=== PATIENT | female | born 1945 | race Caucasian/White ===

== ENCOUNTER 2022-01-29 16:24 | Outpatient (CLI) | payer MEDICARE, BC, SELFPAY | END 2022-01-29 16:25 | disposition home or self-care (01) | PROVIDERS: PCP Family Medicine; Visit Provider Family Medicine | DX: R41.82 Altered mental status, unspecified (principal); R47.81 Slurred speech | CPT/HCPCS: A0425; A0427 ==

== ENCOUNTER 2022-01-29 17:08 | Emergency (ER) | payer MEDICARE, BC, SELFPAY ==
[2022-01-29] VITALS (9 sets, daily range): BP systolic 136–164; BP diastolic 67–103; PULSE 88–97; RESP 16–18; TEMP 36.3; O2SAT 96–98; BMI 31.2
--- NOTE | 2022-01-29 18:21 | CT_ITS ---
Patient: ADILIA COREA Facility:?[facility] R[facility] Patient ID:?[id number] Site Patient ID:?[id number]. Site :?[id number] Study:?CT-Head W/O STROKE ?-01/29/2022 7:08:32 PM Ordering Physician:Loc Mario Final Report: CT HEAD DATE: 01/29/2022 CLINICAL HISTORY: Patient with altered mental status. TECHNIQUE: Standard CT scanning of the head was performed. COMPARISON: None. FINDINGS: There is no intracranial hemorrhage. There is no territorial infarction. There are mild microangiopathic changes. There is diffuse parenchymal volume loss. There is no mass effect or midline shift. The calvarium is unremarkable. The orbits are unremarkable. The paranasal sinuses are unremarkable. The mastoid air cells are unremarkable. The soft tissues are unremarkable. IMPRESSION: 1. No intracranial hemorrhage or territorial infarction. 2. Mild microangiopathic changes and diffuse parenchymal volume loss. Please note that all CT scans at this facility use dose modulation, iterative reconstruction, and/or weight-based dosing when appropriate to reduce radiation dose to as low as reasonably achievable. Dictated by: Pawel Trivedi MD @ 01/29/2022 19:23:47 Signed by:?Pawel Trivedi MD @01/29/2022 7:23:47 PM (Electronic Signature)
--- NOTE | 2022-01-29 18:21 | CT_ITS ---
Patient: ADILIA COREA Facility:?[facility] R[facility] Patient ID:?[id number] Site Patient ID:?[id number]. Site :?[id number] Study:?CT-Neck Angio W/IV CONTRAST-01/29/2022 7:10:15 PM Ordering Physician:Loc Mario Final Report: DATE: 01/29/2022 CLINICAL HISTORY: Patient with focal neurological deficits. TECHNIQUE: Standard helical CT image acquisition of the neck up to the skull base after bolus intravenous contrast enhancement. Multiplanar reconstructed images performed on a separate workstation. COMPARISON: CT same day. FINDINGS: The origins of the great vessels from the aortic arch are patent. The origin of the right vertebral artery is patent. The origin of the left vertebral artery is patent. The common carotid arteries are patent. There is no stenosis at the origin of the right internal carotid artery. There is no stenosis at the origin of the left internal carotid artery. The rest of the cervical segments of the internal carotid arteries are patent up to the skull base. The right vertebral artery is dominant. The cervical segments of the vertebral arteries are patent up to the skull base. The visualized lung apices are unremarkable. The thyroid gland is unremarkable. The soft tissues of the neck are unremarkable. There are degenerative changes in the cervical spine. IMPRESSION: Normal CT angiogram of the neck. Please note that all CT scans at this facility use dose modulation, iterative reconstruction, and/or weight-based dosing when appropriate to reduce radiation dose to as low as reasonably achievable. Dictated by Pawel Trivedi MD @ 01/29/2022 10:55:32 PM Signed by:?Pawel Trivedi MD @01/29/2022 10:55:32 PM (Electronic Signature)
--- NOTE | 2022-01-29 18:21 | CT_ITS ---
Patient: ADILIA COREA Facility:?[facility] Patient ID:?[id number] Site Patient ID:?[id number]. Site :?[id number] Study:?CT-Head Angio W/IV-01/29/2022 7:09:12 PM Ordering Physician:Loc Mario Final Report: DATE: 01/29/2022 CLINICAL HISTORY: Patient with focal neurological deficits. TECHNIQUE: Standard helical CT image acquisition through the intracranial circulation following intravenous administration of contrast material with bolus tracking. Multiplanar reconstructed images were performed and interpreted. COMPARISON: CT same day FINDINGS: There is no cerebral aneurysm or large vessel occlusion. The right internal carotid artery is normal. The right middle cerebral artery and its branches are normal. The right anterior cerebral artery and its branches are normal. The left internal carotid artery is normal. The left middle cerebral artery and its branches are normal. The left anterior cerebral artery and its branches are normal. The anterior communicating artery is well visualized and appears normal. The right vertebral artery and PICA are normal. The left vertebral artery and PICA are normal. The right vertebral artery is dominant. The basilar artery is patent and appears normal. The right posterior cerebral artery is normal. The left posterior cerebral artery is normal. The visualized venous structures are patent. IMPRESSION: Normal CT angiogram of the head without intracranial aneurysm or other neurovascular abnormality. Please note that all CT scans at this facility use dose modulation, iterative reconstruction, and/or weight-based dosing when appropriate to reduce radiation dose to as low as reasonably achievable. Dictated by Pawel Trivedi MD @ 01/29/2022 10:56:45 PM Signed by:?Pawel Trivedi MD @01/29/2022 10:56:45 PM (Electronic Signature)
[2022-01-29 18:22] LABS: Basophils Absolute Auto 0.03 K/uL (0.00-0.30); Basophils Percent Auto 0.4 % (0.0-3.0); Eosinophils Absolute Auto 0.15 K/uL (0.00-0.50); Hemoglobin* 14.3 gm/dL (12.0-16.0); Immature Granulocytes Abs Auto 0.01 K/uL (0.00-0.30); Lymphocytes Percent Auto 19.9 % (20-44); Mean Corpuscular HGB Conc 33 gm/dL (32-36); Mean Corpuscular Hemoglobin 30 pg (26-34); Mean Corpuscular Volume 92 fL (80-100); Monocytes Percent Auto 10.4 % (0.0-11.0); Neutrophils Absolute Auto 4.93 K/uL (1.7-7.0); Neutrophils Percent Auto 67.2 % (42.0-72.0); Platelet Count* 307 K/uL (140-440); RDW Coefficient of Variation % 12.5 % (11.5-15.5); Red Blood Count 4.78 m/uL (4.00-5.20); White Blood Count* 7.34 K/uL (4.50-11.00)
[2022-01-29 18:24] LABS: Amphetamine Screen Urine Negative (Negative); Barbiturate Screen Urine Negative (Negative); Benzodiazepines Screen Urine Negative (Negative); Cannabinoid Screen Urine Negative (Negative); Cocaine Screen Urine Negative (Negative); Methadone Screen Urine Negative (Negative); Methamphetamines Screen Urine Negative (Negative); Opiate Screen Urine Negative (Negative); Oxycodone Screen Urine Negative (Negative); Phencyclidine Screen Urine Negative (Negative); Tricyclic Antidepressant Urine Negative (Negative)
[2022-01-29 18:28] LABS: Slide Review Reflex No
--- NOTE | 2022-01-29 18:34 | ED.GENADULT ---
HPI - General Adult General Chief complaint: Neuro Symptoms/Altered Deficit Stated complaint: AMS Time Seen by Provider: 01/29/22 17:13 Source: patient Mode of arrival: EMS Limitations: no limitations History of Present Illness HPI narrative: Patient is a 76-year-old female arrived to the ER via EMS at the request of her daughter who lives in [place]. According to the patient she was texting both her son and daughter earlier today when she texted done a very confusing text. Children thought she might be having a stroke so they called the ambulance. Patient states that this morning she woke up with a headache and felt a little foggy. She denied blurry vision or changes in her hearing. She is hard of hearing. She denied any confusion or changes in her speech. [place] like she was having a normal day aside from having this headache when she sent out that very confused text. When asked her what happened she states that she does not know. When asked her how she feels now, she states that she still has a headache, but it is much better. She states that she is no longer confused. She denies chest pain or shortness of breath. No recent illness with fever, nausea or vomiting. She has eaten well and normally today. She does state that she does not drink a lot a water during the day. She states that she does not tolerate medications very well. She tells me that she does have a chronic difficulty walking secondary to her leg length discrepancy, she also has clipped speech which sounds like she is constantly out of breath-she tells me this is normal for her. She does show me the text message that she sent to her children which cause concern-the text message was indeed very long message of jumbled words that made no sense. Looking further back in the day she texted perfectly normal texts that made sense. Her past medical history significant for giant cell arteritis, chronic steroid therapy, hyperlipidemia, chronic dyspnea on exertion, clipped speech and difficulty swallowing due to a viral illness in 2019, leg length discrepancy which causes difficulty walking, hearing loss. She currently takes prednisone and daily vitamins. She is not on aspirin or any other blood thinners. Related Data Home Medications Medication Instructions Recorded Confirmed prednisone 1 mg tablet mg 01/29/22 Previous Rx's Medication Instructions Recorded cephalexin 500 mg capsule 500 mg PO BID 7 days #14 caps 01/29/22 Allergies Allergy/AdvReac Type Severity Reaction Status Date / Time albuterol Allergy Verified 01/29/22 17:37 belladonna alkaloids Allergy Verified 01/29/22 17:37 diazepam Allergy Verified 01/29/22 17:37 epinephrine Allergy Verified 01/29/22 17:37 gabapentin Allergy Verified 01/29/22 17:37 hydrocodone Allergy Verified 01/29/22 17:37 midazolam [From Versed] Allergy Verified 01/29/22 17:30 oxycodone Allergy Verified 01/29/22 17:37 Penicillins Allergy Verified 01/29/22 17:37 propoxyphene Allergy Verified 01/29/22 17:37 tramadol Allergy Verified 01/29/22 17:37 Review of Systems Status of ROS: Reports: 10 or more systems reviewed and unremarkable except as noted in History and below [facility] Social History Smoking Status: Unknown if ever smoked Do you use any of these nicotine containing products: None How often do you have a drink containing alcohol: never AUDIT-C Alcohol total score: 0 Non-prescribed substance use: denies use Exam Narrative: Exam Narrative: Overweight patient in no acute distress. Alert and oriented x3. Answers questions appropriately. Mood and affect are appropriate. Thoughts are goal oriented and rational. No tangential or magical thinking noted. Patient has clipped speech. Speech is not slurred, no word-finding difficulty. HEENT: Normocephalic atraumatic. Pupils are equally round reactive to light. Extraocular muscles are intact. Conjunctivae are moist without any icterus noted. Moist mucous membranes. Posterior pharynx is normal. Neck is soft without any lymphadenopathy or thyromegaly. No masses are appreciated. Cardiovascular: Heart is regular rate and rhythm S1 and S2 are present without any murmurs. Lungs: Clear to auscultation bilaterally no wheezes rhonchi or rales are appreciated. Patient takes deep breaths without any discomfort. Abdomen: Soft and nontender nondistended with normal bowel sounds. No guarding or rebound. No masses or organomegaly appreciated. Extremities: Bilateral lower extremities are without edema. Normal DP and PT pulses. Skin: Well perfused without any obvious rashes. Strength is 5/5 of the upper and lower extremities. Reflexes are 2+ and symmetric at the knees. Cranial nerves 3-12 are normal. [id number] is normal. There is no nystagmus either horizontally or vertically. Walking is difficult for her. Const: Vital Signs, click to edit/add: Vital Signs - 24 hr 01/29/22 17:19 01/29/22 17:46 01/29/22 17:20 Temperature 97.4 F L Pulse Rate [Right Pulse Oximeter] 95 93 Respiratory Rate 18 18 Blood Pressure [Le ft Upper Arm] 153/76 H 142/67 H Pulse Oximetry 97 97 97 Oxygen Delivery Me thod Room Air Room Air 01/29/22 17:30 01/29/22 17:45 01/29/22 18:00 Temperature Pulse Rate [Right Pulse Oximeter] 93 91 97 Respiratory Rate 18 18 18 Blood Pressure [Le ft Upper Arm] 164/93 H 136/103 H 149/76 H Pulse Oximetry 97 96 98 Oxygen Delivery Me thod Room Air Room Air Room Air Course Course Hospital Course: EKG showed normal sinus rhythm, imaging including head CT, neck and head CTA were unremarkable. Labs were unremarkable aside from a grossly positive UA, concerning for UTI. Her head CT did show that there was some abnormalities in the fetus is of the lungs there for a chest x-ray was done- it was unremarkable. Her son Cinthya, who is her power of civil litigation attorney did present to the ER as well. Cinthya is concerned that she is not 100% back to normal. He feels that she is slow to respond despite the fact that her responses are appropriate. We discussed that if she is not 100% back to normal that admission is recommended and that we cannot guarantee that she will not get worse and have a significant stroke sooner rather than later. Patient tells me that she does not want to be admitted, she wants no further medical management or treatment, and that if she has a stroke in the next 24 hours she is okay with that. Her son Cinthya states that he is in agreement with his mother's wishes. Vital Signs Vital signs: Initial Vital Signs Temperature 97.4 F L 01/29/22 17:19 Temperature Source Temporal Artery Scan 01/29/22 17:19 Pulse Rate 95 01/29/22 17:19 Respiratory Rate 18 01/29/22 17:19 Blood Pressure 153/76 H 01/29/22 17:19 Blood Pressure Mean 101 01/29/22 17:19 Blood Pressure Position Sitting 01/29/22 17:19 Pulse Oximetry 97 01/29/22 17:19 Oxygen Delivery Method 01/29/22 17:19 Vital Signs Temperature 97.4 F L 01/29/22 17:19 Pulse Rate 95 01/29/22 17:19 Respiratory Rate 18 01/29/22 17:19 Blood Pressure 153/76 H 01/29/22 17:19 Pulse Oximetry 97 01/29/22 17:19 Oxygen Delivery Method 01/29/22 17:19 Temperature 97.4 F L 01/29/22 17:19 Pulse Rate 97 01/29/22 18:00 Respiratory Rate 18 01/29/22 18:00 Blood Pressure 149/76 H 01/29/22 18:00 Pulse Oximetry 98 01/29/22 18:00 Oxygen Delivery Method 01/29/22 18:00 Medical Decision Making MDM Narrative Medical decision making narrative: 76-year-old female with what sounds like a TIA, also presenting with a UTI. Patient received using further treatment. At this point admission and MRI are recommended this was discussed with both the patient and her son both refuse further treatment. Therefore patient will be discharged home with antibiotic for the UTI as well as a daily aspirin 162 mg daily. I recommended she follow-up with her primary care provider this coming week to discuss statin therapy for stroke prevention. Medical Records Medical records reviewed: Yes I reviewed the patient's medical records Lab Data Lab results reviewed: Yes I reviewed the patient's lab results Labs: Lab Results 01/29/22 01/29/22 01/29/22 Range/Units 17:45 17:45 18:12 WBC (4.50-11.00) K/uL RBC (4.00-5.20) m/uL Hgb (12.0-16.0) gm/dL Hct (33.0-51.0) % MCV (80-100) fL MCH (26-34) pg MCHC (32-36) gm/dL RDW Coeff of Suly (11.5-15.5) % Plt Count (140-440) K/uL Neut % (Auto) (42.0-72.0) % Lymph % (Auto) (20-44) % [place] % (Auto) (0.0-11.0) % Eos % (Auto) (0.0-7.0) % Baso % (Auto) (0.0-3.0) % Neut # (Auto) (1.7-7.0) K/uL Lymph # (Auto) (0.90-2.90) K/uL Hendricks # (Auto) (0.00-0.90) K/UL Eos # (Auto) (0.00-0.50) K/uL Baso # (Auto) (0.00-0.30) K/uL Abs Immat Gran (auto) (0.00-0.30) K/uL INR (0.91-1.10) Sodium 140 (135-149) mmol/L Potassium 4.3 (3.6-5.1) mmol/L Chloride 104 (96-114) mmol/L Carbon Dioxide 28 (20-32) mmol/L BUN 15 (7-30) mg/dL Creatinine 0.9 (0.5-1.5) mg/dL Estimated Creat Clear 35.55 Estimated GFR 66 ml/min Glucose 114 (60-115) mg/dL Calcium 9.0 (8.4-10.6) mg/dL Troponin I < 0.01 L (0.01-0.04) ng/mL C-Reactive Protein 1.1 H (0.5-1.0) mg/dL Urine Color Yellow (Yellow) Urine Appearance Clear (Clear) Urine pH 6.0 (5.0-8.5) Ur Specific [place] >= 1.030 (1.000-1.030) Urine Protein 1+ A (Negative) Urine Glucose (UA) Negative (Negative) Urine Ketones Trace A (Negative) Urine Blood 1+ A (Negative) Urine Nitrite Positive A (Negative) Urine Bilirubin Negative (Negative) Urine Urobilinogen 0.2 (0.2-1.0) Ur Leukocyte Esterase 3+ A (Negative) Urine RBC 5-10 A (0-2) Urine WBC >100 A (0-5) Ur Squamous Epith Cells Few (None-Few) Urine Bacteria Moderate A (None) Urine Mucus Few A (None) Urine Opiates Screen Negative (Negative) Ur Oxycodone Screen Negative (Negative) Urine Methadone Screen Negative (Negative) Ur Propoxyphene Screen Negative (Negative) Ur Barbiturates Screen Negative (Negative) U Tricyclic Antidepress Negative (Negative) Ur Phencyclidine Scrn Negative (Negative) Ur Amphetamines Screen Negative (Negative) U Methamphetamines Scrn Negative (Negative) U Benzodiazepines Scrn Negative (Negative) Urine Cocaine Screen Negative (Negative) U Marijuana (THC) Screen Negative (Negative) Ur Drug Screen Comment See Note Ethyl Alcohol < 0.01 L (0.01-0.03) % 01/29/22 01/29/22 01/29/22 Range/Units 18:12 18:12 18:12 WBC 7.34 (4.50-11.00) K/uL RBC 4.78 (4.00-5.20) m/uL Hgb 14.3 (12.0-16.0) gm/dL Hct 44.0 (33.0-51.0) % MCV 92 (80-100) fL MCH 30 (26-34) pg MCHC 33 (32-36) gm/dL RDW Coeff of Suly 12.5 (11.5-15.5) % Plt Count 307 (140-440) K/uL Neut % (Auto) 67.2 (42.0-72.0) % Lymph % (Auto) 19.9 L (20-44) % Hendricks % (Auto) 10.4 (0.0-11.0) % Eos % (Auto) 2.0 (0.0-7.0) % Baso % (Auto) 0.4 (0.0-3.0) % Neut # (Auto) 4.93 (1.7-7.0) K/uL Lymph # (Auto) 1.50 (0.90-2.90) K/uL [place] # (Auto) 0.80 (0.00-0.90) K/UL Eos # (Auto) 0.15 (0.00-0.50) K/uL Baso # (Auto) 0.03 (0.00-0.30) K/uL Abs Immat Gran (auto) 0.01 (0.00-0.30) K/uL INR 0.95 (0.91-1.10) Sodium (135-149) mmol/L Potassium (3.6-5.1) mmol/L Chloride (96-114) mmol/L Carbon Dioxide (20-32) mmol/L BUN (7-30) mg/dL Creatinine (0.5-1.5) mg/dL Estimated Creat Clear Estimated GFR ml/min Glucose (60-115) mg/dL Calcium (8.4-10.6) mg/dL Troponin I (0.01-0.04) ng/mL C-Reactive Protein (0.5-1.0) mg/dL Urine Color (Yellow) Urine Appearance (Clear) Urine pH (5.0-8.5) Ur Specific [place] (1.000-1.030) Urine Protein (Negative) Urine Glucose (UA) (Negative) Urine Ketones (Negative) Urine Blood (Negative) Urine Nitrite (Negative) Urine Bilirubin (Negative) Urine Urobilinogen (0.2-1.0) Ur Leukocyte Esterase (Negative) Urine RBC (0-2) Urine WBC (0-5) Ur Squamous Epith Cells (None-Few) Urine Bacteria (None) Urine Mucus (None) Urine Opiates Screen (Negative) Ur Oxycodone Screen (Negative) Urine Methadone Screen (Negative) Ur Propoxyphene Screen (Negative) Ur Barbiturates Screen (Negative) U Tricyclic Antidepress (Negative) Ur Phencyclidine Scrn (Negative) Ur Amphetamines Screen (Negative) U Methamphetamines Scrn (Negative) U Benzodiazepines Scrn (Negative) Urine Cocaine Screen (Negative) U Marijuana (THC) Screen (Negative) Ur Drug Screen Comment Ethyl Alcohol Cancelled (0.01-0.03) % Imaging Data CT scan - head: Attestation: I have reviewed the pertinent imaging results. Radiologist's impression: TECHNIQUE: Standard CT scanning of the head was performed. COMPARISON: None. FINDINGS: There is no intracranial hemorrhage. There is no territorial infarction. There are mild microangiopathic changes. There is diffuse parenchymal volume loss. There is no mass effect or midline shift. The calvarium is unremarkable. The orbits are unremarkable. The paranasal sinuses are unremarkable. The mastoid air cells are unremarkable. The soft tissues are unremarkable. IMPRESSION: 1. No intracranial hemorrhage or territorial infarction. 2. Mild microangiopathic changes and diffuse parenchymal volume loss. Head and neck CTA: Attestation: I have reviewed the pertinent imaging results. Radiologist's impression: IMPRESSION: CTA head: No sign of occlusion or significant aneurysm. CTA neck: No sign of dissection or significant stenosis. Other: Hazy ground-glass opacities at the lung apices may represent respiratory motion or nonspecific infectious/inflammatory process. Chest x-ray: Attestation: I have reviewed the pertinent imaging results. Radiologist's impression: TECHNIQUE: Chest 2 views. COMPARISON: None. FINDINGS: Cardiovascular and mediastinum: Normal heart size. Mildly tortuous aorta. Possible small hiatal hernia. Lungs and pleural spaces: Mild bibasilar atelectasis. No sign of infiltrate or mass. No sign of pleural effusion. No pneumothorax. Bones and soft tissues: Degenerative changes of the osseous structures. Surgical clips in the upper abdomen. IMPRESSION: No acute or significant findings. ECG Data Attestation: I personally reviewed and interpreted this ECG as follows: (Normal sinus rhythm, pulse 84) Discharge Plan Discharge Clinical Impression: UTI (urinary tract infection), Brain TIA Patient Disposition: Home, Self-Care Condition: Stable Additional Instructions: Follow-up with your primary care provider this coming week to discuss optimal therapy to prevent a stroke. Start taking daily aspirin-162 mg daily, this can be purchased [id number]. Take all antibiotics as prescribed. Again, admission with further testing including a brain MRI were recommended today and you have turned down these recommendations. Prescriptions: New cephalexin 500 mg capsule 500 mg PO BID 7 Days Qty: 14 0RF No Action prednisone 1 mg tablet Label Comments: TAKE 4 TABLETS BY MOUTH EVERY DAY Follow Up/Referrals: Segundo Martins MD [Primary Care Provider] - Stand Alone Forms: [employer] Info Instructions
[2022-01-29 18:37] LABS: INR 0.95 (0.91-1.10); Prothrombin Time 13.1 Seconds
[2022-01-29 18:38] LABS: Chloride* 104 mmol/L (96-114); Potassium* 4.3 mmol/L (3.6-5.1); Sodium* 140 mmol/L (135-149)
[2022-01-29 18:41] LABS: Carbon Dioxide* 28 mmol/L (20-32); Creatinine* 0.9 mg/dL (0.5-1.5); Est. Creatinine Clearance* 35.55; Estimated Glomerular Filt Rate 66 ml/min
[2022-01-29 18:42] LABS: Appearance Urine Clear (Clear); Bilirubin Urine Negative (Negative); Blood Urine 1+ (Negative); Color Urine Yellow (Yellow); Glucose Urine Negative (Negative); Ketones Urine Trace (Negative); Leukocyte Esterase Urine 3+ (Negative); Nitrite Urine Positive (Negative); Protein Urine 1+ (Negative); Specific Gravity Urine >= 1.030 (1.000-1.030); Urobilinogen Urine 0.2 (0.2-1.0)
[2022-01-29 18:42] LABS: Blood Urea Nitrogen* 15 mg/dL (7-30); Glucose* 114 mg/dL (60-115)
[2022-01-29 18:44] LABS: C Reactive Protein* 1.1 mg/dL (0.5-1.0)
[2022-01-29 18:45] LABS: Ethanol* < 0.01 % (0.01-0.03)
[2022-01-29 18:46] LABS: Bacteria Urine Moderate; Mucus Urine Few; Squamous Epithelial Cell Urine Few (None-Few); WBC Urine >100 (0-5)
[2022-01-29 18:53] LABS: Troponin I* < 0.01 ng/mL (0.01-0.04)
--- NOTE | 2022-01-29 19:57 | CRLHL7_ITS ---
For Patients: As a result of the Century Cures Act, medical imaging exams and procedure reports are released immediately into your electronic medical record. You may view this report before your referring provider. If you have questions, please contact your health care provider. INDICATION: Chest pain. TECHNIQUE: Chest 2 views. COMPARISON: None. FINDINGS: Cardiovascular and mediastinum: Normal heart size. Mildly tortuous aorta. Possible small hiatal hernia. Lungs and pleural spaces: Mild bibasilar atelectasis. No sign of infiltrate or mass. No sign of pleural effusion. No pneumothorax. Bones and soft tissues: Degenerative changes of the osseous structures. Surgical clips in the upper abdomen. IMPRESSION: No acute or significant findings. Dictated by Christopher Manzo MD @ 01/29/2022 8:17:04 PM (Electronically Signed)
[2022-01-29 20:31] LABS: Hemoglobin A1C* 5.68 % (0-5.6)
--- NOTE | 2022-01-29 20:42 | ED.NURSE ---
pt signed AMA, family at bedside agreeing with patient and to transport home.
== END 2022-01-29 20:42 | disposition home or self-care (01) ==
PROVIDERS: Emergency Provider Family Medicine; PCP Family Medicine
DX: G45.9 Transient cerebral ischemic attack, unspecified (principal); N39.0 Urinary tract infection, site not specified
CPT/HCPCS: 36415; 70450; 70496; 70498; 71046; 80048; 80306; 81001; 82077; 83036; 84484; 85025; 85610; 86140; 87086; 87186; 93005; 94761; 99285; Q9967

== ENCOUNTER 2022-02-10 21:30 | Emergency (ER) | payer MEDICARE, BC, SELFPAY ==
[2022-02-10 21:42] VITALS: BP 131/83; PULSE 101; RESP 18; TEMP 36.8; O2SAT 95; BMI 33.3
--- NOTE | 2022-02-10 22:32 | ED.SOB ---
HPI - SOB/Dyspnea General Time Seen by Provider: 10:40 Date Seen: 02/10/22 Chief Complaint: Shortness of Breath/Dyspnea Stated Complaint: Shortness of breath Time Seen by Provider: 02/10/22 22:35 Source: patient, family, RN notes reviewed and old records reviewed Mode of arrival: ambulatory Limitations: no limitations History of Present Illness HPI Narrative: Patient is a 76-year-old female with questionable TIA 2 weeks ago currently on aspirin daily who comes to the emergency room complaints of fever right arm pain and coughing. According to nursing patient initially wanted a COVID test only but now upon interview has multiple complaints. Patient notes the onset of a fever up to 103.4 on TuesdayFebruary 08. She notes associated cough with production as well as diarrhea. She states this morning she was on the toilet and had an episode where she was unable to move any of her limbs with the exception of her left arm and hand. Do press her further in regards to feeling as if she could not move because she was weak or if she was paralyzed. She is unable to answer. She notes that she was on the toilet for approximately 30 minutes and then pushed herself off the toilet and fell hitting her head without loss of consciousness but injuring her right shoulder. She states thus the 3rd time she has injured her right shoulder. In the past she has had puffiness of her arm and thought she might have blood clots. That puffiness has completely resolved. Her pain is in her upper arm. She has not had blood clots in the past. Patient also notes pain in her back. She states that it is irritating while she is lying there. She has no neck pain. She denies chest pain. Patient has had resolution of the inability to move her limbs. She has chronic difficulty moving her right lower extremity. Patient initially states that she is on and antibiotic Keflex but then states she is actually finished with this. She states that she still has the urine infection because her urine smells badly. Patient is very challenging historian. Hops from topic to topic. I did need to redirect her in order to obtain answers to important questions. I fear I may have irritated her because of this redirection. MD elicited complaint: cough Related Data Previous Rx's Medication Instructions Recorded cephalexin 500 mg capsule 500 mg PO BID 7 days #14 caps 01/29/22 nirmatrelvir 150 mg-ritonavir 100 See Rx Instructions PO .COMPLEX 02/11/22 mg tablets in a dose pack (EUA) #10 ea (Paxlovid) nitrofurantoin 100 mg PO BID 5 days #10 caps 02/11/22 monohydrate/macrocrystals 100 mg capsule (Macrobid) Allergies Allergy/AdvReac Type Severity Reaction Status Date / Time albuterol Allergy Verified 02/10/22 21:51 belladonna alkaloids Allergy Verified 02/10/22 21:51 diazepam Allergy Verified 02/10/22 21:51 epinephrine Allergy Verified 02/10/22 21:51 gabapentin Allergy Verified 02/10/22 21:51 hydrocodone Allergy Verified 02/10/22 21:51 midazolam [From Versed] Allergy Verified 02/10/22 21:51 oxycodone Allergy Verified 02/10/22 21:51 Penicillins Allergy Verified 02/10/22 21:51 propoxyphene Allergy Verified 02/10/22 21:51 tramadol Allergy Verified 02/10/22 21:51 Review of Systems Const: Reports: fever and fatigue Eyes: Denies: change in vision ENMT: Denies: difficulty swallowing Cardio: Denies: chest pain, palpitations, edema or swelling of feet/ankles Resp: Reports: cough GI: Reports: diarrhea; Denies: abdominal pain, nausea, vomiting, difficulty swallowing or blood in stool : Reports: other (Foul-smelling urine); Denies: painful urination Musculo: Reports: back pain Integ/Breast: Denies: rash Neuro: Reports: weakness in extremities (Episodic for approximately 2 hours this morning.); Denies: headache Endo: Reports: fatigue; Denies: excessive urination [facility] Medical History Health care directive on file Social History Smoking Status: Never smoker Do you use any of these nicotine containing products: None How often do you have a drink containing alcohol: never AUDIT-C Alcohol total score: 0 Non-prescribed substance use: denies use Exam Const: Vital Signs, click to edit/add: Vital Signs - 24 hr 02/10/22 21:42 02/10/22 22:34 Temperature 98.2 F Pulse Rate [Right Pulse Oximeter] 101 H 94 Respiratory Rate 18 Blood Pressure [Le ft Upper Arm] 131/83 Pulse Oximetry 95 97 Oxygen Delivery Me thod Room Air Room Air Documenting provider has reviewed patient's vital signs: yes Common normals: no apparent distress, oriented x3, healthy appearing and alert General appearance: cooperative, comfortable and well kempt Other: Hopping from topic to topic. Requiring redirection. Nontoxic in appearance. HENMT: Common normals: normocephalic, head/scalp atraumatic and external ears normal Head and scalp: normocephalic and atraumatic External ear: external ears normal Mouth: oral and palatal mucosa normal and tongue normal Eye: Common normals: PERRL General eye: normal appearance of both eyes Pupil: PERRL Neck & C-Spine: Common normals: full ROM and supple Chest: Common normals: inspection of chest normal Resp: Common normals: normal respiratory effort and clear to auscultation bilaterally Effort & inspection: able to speak in complete sentences and symmetric chest movement Auscultation: clear to auscultation bilaterally Cardio: Common normals: regular rate and regular rhythm Rate: regular rate Rhythm: regular rhythm GI: Common normals: soft to palpation and non-tender Palpation: soft : Common normals: no CVA tenderness Bladder/kidney exam: no CVA tenderness Back & Pelvis: Common normals: no CVA tenderness and thoracic and lumbar spine normal to inspection Thoracic spine/upper back: thoracic spinal tenderness T-spine tenderness location: T4 and T5 T-spine tenderness details: no swelling, no warmth, no erythema or no ecchymosis Lumbar spine/lower back: normal to inspection Extremity: Other: Right humerus tender to touch without evidence of ecchymosis or deformity. Neuro: Common normals: oriented x3, moves all extremities, no focal motor deficits and no sensory deficits noted Sensorium/orientation: alert Speech: speech normal Motor exam: strength 5/5 throughout Other: Note that patient able to lift left leg and hold in the air for 5 seconds. Right leg she patient is able to hold off bed for 5 seconds but not to the extent as the left. This secondary to discomfort in the hip and knee. Psych: Appearance: well kempt Activity/motor behavior: appropriate eye contact Mood and affect: elevated mood Thought content: normal thought content Insight: fair Judgement: fair Skin: Common normals: no rashes or lesions noted General skin exam: no rashes or lesions noted Course Course Hospital Course: Patient presenting with fever, vomiting, cough on day 3. Very suspicious for COVID and a COVID test is currently pending. Given the ongoing diarrhea will also check a CBC and basic panel. Patient will undergo chest x-ray right arm x-ray head CT. Vital Signs Vital signs: Initial Vital Signs Temperature 98.2 F 02/10/22 21:42 Temperature Source Temporal Artery Scan 02/10/22 21:42 Pulse Rate 101 H 02/10/22 21:42 Respiratory Rate 18 02/10/22 21:42 Blood Pressure 131/83 02/10/22 21:42 Blood Pressure Mean 99 02/10/22 21:42 Blood Pressure Position Sitting 02/10/22 21:42 Pulse Oximetry 95 02/10/22 21:42 Oxygen Delivery Method 02/10/22 21:42 Vital Signs Temperature 98.2 F 02/10/22 21:42 Pulse Rate 101 H 02/10/22 21:42 Respiratory Rate 18 02/10/22 21:42 Blood Pressure 131/83 02/10/22 21:42 Pulse Oximetry 95 02/10/22 21:42 Oxygen Delivery Method 02/10/22 21:42 Temperature 98.2 F 02/10/22 21:42 Pulse Rate 94 02/10/22 22:34 Respiratory Rate 18 02/10/22 21:42 Blood Pressure 131/83 02/10/22 21:42 Pulse Oximetry 97 02/10/22 22:34 Oxygen Delivery Method 02/10/22 22:34 MDM - SOB/Dyspnea MDM Narrative Medical decision making narrative: 1. COVID-at this time patient's white count, oximetry is reassuring. Patient denies any chest pain or significant shortness of breath. She is not requiring oxygen. Today's day 3 of symptoms. She is a candidate for Paxilovid given her age and increased risk for disease progression. I did speak about risks including renal injury and intolerance. I do think that benefits outweigh risks in this particular situation. Patient and her son are in agreement for this medication is a does represent 88% risk reduction for disease progression. Fact sheet is provided to the family. Prescription is sent to [facility]. 2. UTI-patient treated for E coli UTI on 01/29 with 7 days of Keflex. It appears it is not completely gone at this point. Would recommend treatment with Macrobid. Initially thought that Cipro would be appropriate but given the fact that patient will also be on Paxil of id would like to avoid 2 medications that have the potential to whom kidney. Macrobid 100 mg p.o. b.i.d. x5 days sent to [facility] pharmacy. First dose tonmarco a in the ED 100 mg p.o.. Await urine culture. No previous urine culture from 2 weeks ago was E coli. Was sensitive to Keflex. Ariana's urine appears to show a mild UTI. Will await culture. 3. . Episode of difficulty with movement-I believe this appears to be more related to weakness. Findings do not fit with specific stroke-like pattern. Head CT reassuring with no evidence of stroke. Exam reassuring with symmetrical strength with the exception of right lower extremity which is chronically weak. Bruise now developing on anterior upper arm. Fortunately no evidence of underlying fracture. 4. . Fall with right arm injury no evidence of fracture. No evidence of spinal fracture. 5. . Diarrhea--no episodes here in the emergency room. Likely secondary to COVID. 6. . Disposition- patient will be going home. Recommend returning to the ED for shortness of breath, chest pain or any worsening symptoms. Social concern: When Mrs. Perez was at x-ray patient's son noted that he has particular concern about her living conditions. She has many cats in the house and is a hoarder. [facility] told [facility] they are unable to do anything about her living conditions. Ariana she does not give me a reason that I would be able to hold her or that she is a vulnerable adult at this point. She certainly has some mild cognitive decline but not to the point where I would be able to place a 72 hour hold or that I think she is a vulnerable adult. I did [facility] given what he is describing. Note her clothes are clean with only a few CT hairs. There is no odor of her clothes. She appears to be bathed. Medical Records Attestation: I reviewed the patient's medical records. Lab Data Attestation: I reviewed the patient's lab results. Labs: Lab Results 02/10/22 02/10/22 02/10/22 Range/Units 22:03 22:54 23:50 WBC 4.98 (4.50-11.00) K/uL RBC 4.55 (4.00-5.20) m/uL Hgb 13.7 (12.0-16.0) gm/dL Hct 41.6 (33.0-51.0) % MCV 91 (80-100) fL MCH 30 (26-34) pg MCHC 33 (32-36) gm/dL RDW Coeff of Suly 12.9 (11.5-15.5) % Plt Count 249 (140-440) K/uL Neut % (Auto) 68.4 (42.0-72.0) % Lymph % (Auto) 17.7 L (20-44) % Addison % (Auto) 13.5 H (0.0-11.0) % Eos % (Auto) 0.0 (0.0-7.0) % Baso % (Auto) 0.2 (0.0-3.0) % Neut # (Auto) 3.41 (1.7-7.0) K/uL Lymph # (Auto) 0.90 (0.90-2.90) K/uL Addison # (Auto) 0.70 (0.00-0.90) K/UL Eos # (Auto) 0.00 (0.00-0.50) K/uL Baso # (Auto) 0.01 (0.00-0.30) K/uL Abs Immat Gran (auto) 0.01 (0.00-0.30) K/uL Sodium (135-149) mmol/L Potassium (3.6-5.1) mmol/L Chloride (96-114) mmol/L Carbon Dioxide (20-32) mmol/L BUN (7-30) mg/dL Creatinine (0.5-1.5) mg/dL Estimated Creat Clear Estimated GFR ml/min Glucose (60-115) mg/dL Calcium (8.4-10.6) mg/dL Total Bilirubin (0.1-1.5) mg/dL AST (12-35) U/L ALT (4-35) U/L Alkaline Phosphatase (40-150) U/L Total Protein (6.0-8.3) g/dL Albumin (3.3-5.0) g/dL Urine Color Yellow (Yellow) Urine Appearance Cloudy A (Clear) Urine pH 5.5 (5.0-8.5) Ur Specific [place] >= 1.030 (1.000-1.030) Urine Protein Negative (Negative) Urine Glucose (UA) Negative (Negative) Urine Ketones 1+ A (Negative) Urine Blood 1+ A (Negative) Urine Nitrite Positive A (Negative) Urine Bilirubin Negative (Negative) Urine Urobilinogen 0.2 (0.2-1.0) Ur Leukocyte Esterase 2+ A (Negative) Urine RBC 2-5 A (0-2) Urine WBC 10-25 A (0-5) Ur Squamous Epith Cells Moderate A (None-Few) Urine Bacteria Moderate A (None) Urine Mucus Moderate A (None) SARS-CoV-2 (PCR) POSITIVE SARS-CoV-2 A (Negative) 02/10/22 Range/Units 23:50 WBC (4.50-11.00) K/uL RBC (4.00-5.20) m/uL Hgb (12.0-16.0) gm/dL Hct (33.0-51.0) % MCV (80-100) fL MCH (26-34) pg MCHC (32-36) gm/dL RDW Coeff of Suly (11.5-15.5) % Plt Count (140-440) K/uL Neut % (Auto) (42.0-72.0) % Lymph % (Auto) (20-44) % Addison % (Auto) (0.0-11.0) % Eos % (Auto) (0.0-7.0) % Baso % (Auto) (0.0-3.0) % Neut # (Auto) (1.7-7.0) K/uL Lymph # (Auto) (0.90-2.90) K/uL Addison # (Auto) (0.00-0.90) K/UL Eos # (Auto) (0.00-0.50) K/uL Baso # (Auto) (0.00-0.30) K/uL Abs Immat Gran (auto) (0.00-0.30) K/uL Sodium 134 L (135-149) mmol/L Potassium 4.1 (3.6-5.1) mmol/L Chloride 99 (96-114) mmol/L Carbon Dioxide 25 (20-32) mmol/L BUN 18 (7-30) mg/dL Creatinine 1.0 (0.5-1.5) mg/dL Estimated Creat Clear 55.66 Estimated GFR 58 ml/min Glucose 103 (60-115) mg/dL Calcium 9.2 (8.4-10.6) mg/dL Total Bilirubin 0.4 (0.1-1.5) mg/dL AST 40 H (12-35) U/L ALT 21 (4-35) U/L Alkaline Phosphatase 90 (40-150) U/L Total Protein 6.9 (6.0-8.3) g/dL Albumin 4.1 (3.3-5.0) g/dL Urine Color (Yellow) Urine Appearance (Clear) Urine pH (5.0-8.5) Ur Specific [place] (1.000-1.030) Urine Protein (Negative) Urine Glucose (UA) (Negative) Urine Ketones (Negative) Urine Blood (Negative) Urine Nitrite (Negative) Urine Bilirubin (Negative) Urine Urobilinogen (0.2-1.0) Ur Leukocyte Esterase (Negative) Urine RBC (0-2) Urine WBC (0-5) Ur Squamous Epith Cells (None-Few) Urine Bacteria (None) Urine Mucus (None) SARS-CoV-2 (PCR) (Negative) Imaging Data CT scan - head: Attestation: I have reviewed the pertinent imaging results. My impression: No acute bleed Radiologist's impression: in: No evidence of mass, acute infarction or hemorrhage is seen. No mass-effect or midline shift is seen. Mild diffuse cortical atrophy is noted. The brain parenchyma is otherwise normal in appearance with preservation of the oliver-white matter junction. Calvarium: The visualized paranasal sinuses are well aerated. The mastoid air cells are clear. The visualized orbits are grossly unremarkable. The calvarium is unremarkable in appearance with no fractures identified. IMPRESSION: 1. No evidence of acute infarction, intracranial hemorrhage, or mass-effect seen. Please note that all CT scans at this facility use dose modulation, iterative reconstr Chest x-ray: Attestation: I have reviewed the pertinent imaging results. Radiologist's impression: ungs: Low lung volumes. No consolidation. The tracheobronchial tree and hilar structures are unremarkable. Pleura: No pleural effusion or pneumothorax. Heart and Mediastinum: Normal heart size. Atherosclerotic aorta. Bones: No acute displaced osseous process. Cholecystectomy. IMPRESSION: No consolidation. Thoracic spine: Attestation: I have reviewed the pertinent imaging results. Radiologist's impression: Bones: Curvature of the thoracic spine, convex to the left. No fractures. Soft tissue on the lateral exam overlies the upper thoracic vertebral bodies degrading evaluation on this view. Joints: Mild multilevel thoracic spondylosis. Soft tissues: Unremarkable. Shoulder and humerus: Radiologist's impression: No acute displaced fracture or malalignment. No soft tissue swelling. Joint spaces are maintained. Bony mineralization is age appropriate. Discharge Plan Discharge Clinical Impression: UTI (urinary tract infection), COVID, Soft tissue injury Patient Disposition: Home w/ Parent or Adult Condition: Improved Additional Instructions: Started Macrobid tonight for a urinary tract infection. Continue this when you strip picker prescriptions at [facility]. You will take this medicine for 7 days. Please make sure you are well hydrated with fluids. Fortunately, head CT looks good and there is no evidence of fracture of your arm. Unfortunately you have COVID. Start Paxlovid tomorrow. This is an antiviral medication. Return for worsening symptoms and as needed. Especially shortness of breath, confusion, chest pain, difficulty breathing and as needed. Prescriptions: New Paxlovid (EUA) 150-100 mg tablets,dose pack See Rx Instructions .ROUTE .COMPLEX Qty: 10 0RF Rx Instructions: orally per package directions nitrofurantoin monohyd/m-cryst [Macrobid] 100 mg capsule 100 mg PO BID 5 Days Qty: 10 0RF Rx Instructions: must administer with a meal/food No Action cephalexin 500 mg capsule 500 mg PO BID 7 Days Qty: 14 0RF Follow Up/Referrals: Segundo Martins MD [Primary Care Provider] - Stand Alone Forms: [employer] Info Instructions
[2022-02-10 22:34] VITALS: PULSE 94; O2SAT 97
--- NOTE | 2022-02-10 22:54 | CRLHL7_ITS ---
For Patients: As a result of the Cures Act, medical imaging exams and procedure reports are released immediately into your electronic medical record. You may view this report before your referring provider. If you have questions, please contact your health care provider. INDICATION: Cough and fever. TECHNIQUE: Thoracic spine 2 view. COMPARISON: None. FINDINGS/IMPRESSION: Bones: Curvature of the thoracic spine, convex to the left. No fractures. Soft tissue on the lateral exam overlies the upper thoracic vertebral bodies degrading evaluation on this view. Joints: Mild multilevel thoracic spondylosis. Soft tissues: Unremarkable. Dictated by Bert Larose MD @ 02/10/2022 11:44:44 PM (Electronically Signed)
--- NOTE | 2022-02-10 22:54 | CRLHL7_ITS ---
For Patients: As a result of the Cures Act, medical imaging exams and procedure reports are released immediately into your electronic medical record. You may view this report before your referring provider. If you have questions, please contact your health care provider. INDICATION: Cough, fever. TECHNIQUE: Chest 1 views. COMPARISON: January 2022. FINDINGS: Lungs: Low lung volumes. No consolidation. The tracheobronchial tree and hilar structures are unremarkable. Pleura: No pleural effusion or pneumothorax. Heart and Mediastinum: Normal heart size. Atherosclerotic aorta. Bones: No acute displaced osseous process. Cholecystectomy. IMPRESSION: No consolidation. Dictated by Bert Larose MD @ 02/10/2022 11:48:02 PM (Electronically Signed)
--- NOTE | 2022-02-10 22:54 | CRLHL7_ITS ---
For Patients: As a result of the Cures Act, medical imaging exams and procedure reports are released immediately into your electronic medical record. You may view this report before your referring provider. If you have questions, please contact your health care provider. Indication: Fever, cough. Technique: Two views right upper extremity. Comparison: None. Findings/Impression: No acute displaced fracture or malalignment. No soft tissue swelling. Joint spaces are maintained. Bony mineralization is age appropriate. Dictated by Bert Larose MD @ 02/10/2022 11:46:09 PM (Electronically Signed)
--- NOTE | 2022-02-10 23:05 | CRLHL7_ITS ---
For Patients: As a result of the Cures Act, medical imaging exams and procedure reports are released immediately into your electronic medical record. You may view this report before your referring provider. If you have questions, please contact your health care provider. INDICATION: Head injury from fall TECHNIQUE: CT Head without i.v. contrast. Coronal and sagittal reformats were obtained. COMPARISON: 01/29/2022 FINDINGS: CSF space: Unremarkable for age. Brain: No evidence of mass, acute infarction or hemorrhage is seen. No mass-effect or midline shift is seen. Mild diffuse cortical atrophy is noted. The brain parenchyma is otherwise normal in appearance with preservation of the oliver-white matter junction. Calvarium: The visualized paranasal sinuses are well aerated. The mastoid air cells are clear. The visualized orbits are grossly unremarkable. The calvarium is unremarkable in appearance with no fractures identified. IMPRESSION: 1. No evidence of acute infarction, intracranial hemorrhage, or mass-effect seen. Please note that all CT scans at this facility use dose modulation, iterative reconstruction, and/or weight-based dosing when appropriate to reduce radiation dose to as low as reasonably achievable. Dictated by: Yan Tao MD @ 02/10/2022 23:52:26 (Electronically Signed)
[2022-02-11] LABS: Basophils Absolute Auto 0.01 K/uL (0.00-0.30); Basophils Percent Auto 0.2 % (0.0-3.0); Hematocrit 41.6 % (33.0-51.0); Hemoglobin* 13.7 gm/dL (12.0-16.0); Immature Granulocytes Abs Auto 0.01 K/uL (0.00-0.30); Lymphocytes Percent Auto 17.7 % (20-44); Mean Corpuscular HGB Conc 33 gm/dL (32-36); Mean Corpuscular Hemoglobin 30 pg (26-34); Mean Corpuscular Volume 91 fL (80-100); Monocytes Percent Auto 13.5 % (0.0-11.0); Neutrophils Absolute Auto 3.41 K/uL (1.7-7.0); Neutrophils Percent Auto 68.4 % (42.0-72.0); Platelet Count* 249 K/uL (140-440); RDW Coefficient of Variation % 12.9 % (11.5-15.5); Red Blood Count 4.55 m/uL (4.00-5.20); White Blood Count* 4.98 K/uL (4.50-11.00)
[2022-02-11 00:01] LABS: Appearance Urine Cloudy (Clear); Bilirubin Urine Negative (Negative); Blood Urine 1+ (Negative); Color Urine Yellow (Yellow); Glucose Urine Negative (Negative); Ketones Urine 1+ (Negative); Leukocyte Esterase Urine 2+ (Negative); Nitrite Urine Positive (Negative); Protein Urine Negative (Negative); Specific Gravity Urine >= 1.030 (1.000-1.030); Urobilinogen Urine 0.2 (0.2-1.0); pH Urine 5.5 (5.0-8.5)
[2022-02-11 00:13] LABS: Slide Review Reflex No
[2022-02-11 00:18] LABS: Albumin* 4.1 g/dL (3.3-5.0); Chloride* 99 mmol/L (96-114); Sodium* 134 mmol/L (135-149)
[2022-02-11 00:19] LABS: Potassium* 4.1 mmol/L (3.6-5.1)
[2022-02-11 00:21] LABS: Bacteria Urine Moderate; Mucus Urine Moderate; Squamous Epithelial Cell Urine Moderate (None-Few)
[2022-02-11 00:21] LABS: Alanine Aminotransferase* 21 U/L (4-35); Alkaline Phosphatase* 90 U/L (40-150); Aspartate Amino Transferase* 40 U/L (12-35); Bilirubin Total* 0.4 mg/dL (0.1-1.5); Blood Urea Nitrogen* 18 mg/dL (7-30); Carbon Dioxide* 25 mmol/L (20-32); Est. Creatinine Clearance* 55.66; Estimated Glomerular Filt Rate 58 ml/min; Glucose* 103 mg/dL (60-115); Total Protein* 6.9 g/dL (6.0-8.3)
[2022-02-11 00:22] LABS: Calcium* 9.2 mg/dL (8.4-10.6)
[2022-02-11 00:46] LABS: SARS PCR* POSITIVE SARS-CoV-2 (Negative)
[2022-02-11] MEDS: NITROFURANTOIN MONOHYD MACRO 100 MG CAPSULE PO (01:15)
== END 2022-02-11 01:25 | disposition home or self-care (01) ==
PROVIDERS: Emergency Provider Family Medicine; PCP Family Medicine
DX: U07.1 COVID-19 (principal); N39.0 Urinary tract infection, site not specified
CPT/HCPCS: 36415; 70450; 71045; 72070; 73060; 80053; 81001; 85025; 87086; 87186; 87631; 87635; 99284; 99285; A9270

== ENCOUNTER 2024-05-07 14:50 | Outpatient (CLI) | payer MEDICARE, BC, SELFPAY | END 2024-05-07 14:51 | disposition home or self-care (01) | LOC: NFLDUCREF 14:52 | PROVIDERS: PCP Family Medicine | DX: N39.0 Urinary tract infection, site not specified (principal) | CPT/HCPCS: 87086 ==

== ENCOUNTER 2024-08-24 15:04 | Outpatient (CLI) | payer MEDICARE, BC, SELFPAY | END 2024-08-24 15:05 | disposition home or self-care (01) | LOC: AMB 08-27 09:14 | PROVIDERS: PCP Family Medicine; Visit Provider Family Medicine | DX: R53.1 Weakness (principal); R20.0 Anesthesia of skin; S79.911A Unspecified injury of right hip, initial encounter; W18.30XA Fall on same level, unspecified, initial encounter; Y92.009 Unspecified place in unspecified non-institutional (private) residence as the place of occurrence of the external cause | CPT/HCPCS: A0425; A0433 ==

== ENCOUNTER 2024-08-24 15:54 | Observation (INO) | payer MEDICARE, BC, SELFPAY ==
[2024-08-24] VITALS (9 sets, daily range): BP systolic 123–154; BP diastolic 78–110; PULSE 67–79; RESP 13–20; TEMP 36.3–36.5; O2SAT 95–100; BMI 64.6; BMI 30.3
--- OUTSIDE RECORDS SUMMARY | 2024-08-24 15:56 | XMS_ITS | Clinical Summary ---
Author Organization [facility] Address [address] [place] [address] Care Team Providers Care Repairer Handtools Name Role Phone Segundo Martins MD Primary Care Provider Allergies Active Allergy Reactions Criticality Noted Date Comments Albuterol Other - Describe In Comment Field 10/24/2013 BP and heart rate elevated Adhesive Tape 06/14/2007 Epinephrine Other - Describe In Comment Field 04/17/2014 Increased heart beat Belladonna Alkaloids-Opium 06/14/2007 Penicillins Rash 09/09/2011 Diazepam 06/14/2007 Midazolam Palpitations 06/14/2007 elevated BP with palpitations Medications No known medications Active Problems Problem Noted Date Diagnosed Date Nerve damage 11/26/2014 Overview (11/26/2014): Diaphragm, right ear, 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 Has had extensive PT to strengthen respiratory functioning. DDD (degenerative disc disease), cervical 2012 Cervical stenosis of spinal canal 04/28/2013 Breathing difficulty 04/28/2013 Clipped speech 04/25/2013 Dyspnea 04/25/2013 Congenital hip dysplasia 04/25/2013 Bilateral arm pain 04/25/2013 Overview (04/25/2013): Chronic, without weakness Mixed hyperlipidemia 02/22/2012 Resolved Problems Problem Noted Date Diagnosed Date Resolved Date Abnormal MRI, cervical spine 04/25/2013 04/28/2013 Overview (04/25/2013): Bilateral, multilevel foraminal narrowing, specifically at C4-5 and C5-6 Family History Medical History Relation Name Comments Hypertension Mother Cancer Paternal Grandfather Stomach /lived for 13 year Relation Name Status Comments Father (Age 78) medication induced cirrhosis Mother Paternal Grandfather Social History Tobacco Use Types Packs/Day Years Used Date Smoking Tobacco: Never Smokeless Tobacco: Never Tobacco Cessation:Counseling Given: Yes Alcohol Use Standard Drinks/Week Comments No 0 (1 standard drink = 0.6 oz pur e alcohol) Social Connections Answer Date Recorded Frequency of Communication with Friends and Fami ly Not on file 05/16/2021 Financial Resource Strain Answer Date R ecorded Difficulty of Paying Living Expenses Not on file 05/16/2021 Difficulty of Paying Living Expenses Not on file 05/16/2021 Comments No Sex and Gender Information Value Date Recorded Sex Assigned at Not on file 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 Gender Identity Not on file Sexual Orientation Not on file Obstetrics History Para Term AB IAB SAB Ectopic Multiple Livin g Live Births 5 5 5 5 Date Outcome GA Total Labor Labor/2nd/3rd Weight Sex Type Anes PTL Marissa A1 A5 Name Clin Term Term Term Term Term Last Filed Vital Signs Vital Sign Reading Time Taken Comments Blood Pressure 131/79 03/10/2016 9:10 AM CDT tow er Pulse 103 03/10/2016 9:10 AM CDT Temperature 36.8 C (98.3 F) 03/10/2016 9:10 AM CDT Respiratory Rate - - Oxygen Saturation 97% 03/10/2016 9:10 AM CDT Inhaled Oxygen Concentration - - Weight 70.5 kg (155 lb 8 oz) 03/10/2016 9:10 AM CDT Height 157.4 cm (5' 1.97) 03/10/2016 9:10 AM CD T Body Mass Index 28.47 03/10/2016 9:10 AM CDT Plan of Treatment Health Maintenance Due Date Last Done Comments Tdap 1955 Tetanus booster 1964 Pneumococcal series for age 50+ (1 of 1 - PCV) 1994 Zoster (shingles) series for age 50+ (1 of 2) 1994 DEXA/DXA scan for age 65+ 2009 Medicare Wellness for age 65+ 09/09/2012 09/09/2011 Depression screening for age 12+ 08/28/2016 08/29/19 16 BMI (ht and wt on same day) for age 18+ 03/10/2017 03/10/2016, 02/18/2016, 08/29/2015 RSV vaccine for adults or pr egnancy (1 - 1-dose 75+ series) 2019 COVID-19 vaccine series ( season) 2024 01/20/2021, 12/30/2020 Influenza Vaccine (Season Ended) 2025 Insurance [place] BL[place] HB ONLY [place] MR PB ONLY Care Teams Repairer Handtools Relationship Specialty Start Date End Date Segundo Martins MD [address] [place] [id number] PCP - General Family Practice 03/06/21
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
--- OUTSIDE RECORDS SUMMARY | 2024-08-24 15:56 | XMS_ITS | Clinical Summary ---
Author Organization [facility] Address [address] [place] [address] Care Team Providers Care Professor Of English Name Role Phone Linda Merritt P.A.-C. Primary Care Pro vider Source Comments Patient records contain information from all sites at [facility]. For routine questions regarding patient records, call [phone] during business hours, M-F 8:00 AM - 5:00 PM Central Time. Record requests for emergency care only can be directed to [phone] at any time.[facility] Allergies Active Allergy Reactions Criticality Noted Date Comments Acetaminophen Other (see comments) 07/21/2017 Throws up Adhesive Rash 04/24/2020 Adhesive Tape-Silicones Other (see comments) 06/18/2013 Per history: any kind of tape Reaction type unknown. Albuterol Other (see comments) 10/24/2013 BP and heart rate elevated Belladonna Alkaloids Other (see comments) 02/10 Belladonna Alkaloids-Opium Other (see comments) 06/14/2007 Benzocaine Blisters High 03/02/2013 Celecoxib Other (see comments) 04/24/2020 Cant take Clozapine Other (see comments) High 04/24/2020 Tachy cardia Codeine Other (see comments) 04/24/2020 Can't take Can't take Diazepam Other (see comments) 03/02/2013 Unknown reaction type per history. Hyper crazy It act like an upper or stimulant for pt. Epinephrine Other (see comments) 06/18/2013 Unknown reaction type per history. hyper Increased heart beat heart racing Gabapentin Other (see comments) 04/24/2020 Sick in stomache, insomina, nightmares Hydrocortisone Other (see comments) 04/24/2020 Cant take Latex Other (see comments) 05/25/2022 Midazolam Other (see comments),Palpitations 06/14/2007 Unknown reaction type per history. elevated BP with palpitations Opioids - Morphine Analogues Hallucinations 09/01/2017 Penicillamine Rash 04/24/2020 Penicillins Other (see comments) 06/18/2013 Unknown reaction type per history. Propoxyphene Other (see comments) 04/24/2020 crazy Resorcinol-Alcohol Other (see comments) 014 Lotions. Unknown reaction type per history. Tree And Shrub Pollen Cough,Shortness of breath Medium 11/03/2023 And weeds Medications * This document contains information received from the source organization and may not represent a complete record from that organization. ascorbic acid, vitamin C, (VITAMIN C) 250 mg tablet Take 250 mg by mouth daily. Active cholecalciferol (VITAMIN D3) 25 mcg (1,000 Unit) capsule Take 25 mcg by mouth daily. Active cyanocobalamin (VITAMIN B12) 1,000 mcg tablet Take by mouth daily. Active aspirin [address] tablet Take 81 mg by mouth daily. 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 Immunizations Immunization Administration Dates Next Due Tdap 11/18/2020 Family History Medical History Relation Name Comments Skin cancer Brother yesica Skin cancer Father mother Stroke Father mother Skin cancer Son sonido Amblyopia Neg Hx Blindness Neg Hx Cataracts Neg Hx Corneal Dystrophy Neg Hx Glaucoma Neg Hx Macular degeneration Neg Hx Retinal degeneration Neg Hx Retinal detachment Neg Hx Strabismus Neg Hx Vision loss Neg Hx Relation Name Status Comments Brother yesica Father mother Son sonido Social History Tobacco Use Types Packs/Day Years Used Date Smoking Tobacco: Never Passive Smoke Exposure: Past Smokeless Tobacco: Never Passive Exposure Comments:Tolu doyle were smokers. Alcohol Use Standard Drinks/Week Comments Never 0 (1 standard drink = 0.6 oz pur e alcohol) Humiliation, Afraid, Rape, and Kick questionnair e Answer Date Recorded Within the last year, have y ou been afraid of your partner or ex-partner? No 05/25/2022 Within the last year, have y ou been humiliated or emotionally abused in other ways by your partner or ex-partner? No Within the last year, have y ou been kicked, hit, slapped, or otherwise physically hurt by your partner or ex-partner? No 05/25/2022 Within the last year, have y ou been raped or forced to have any kind of sexual activity by your partner or ex-partner? No 05/25/2022 Social Connection and Isolat ion Panel [NHANES] Answer Date Recorded In a typical week, how many times do you talk on the phone with family, friends, or neighbors? More than three times a week 05/25/2022 How often do you get togethe r with friends or relatives? Three times a week 05/25/2022 How often do you attend chur ch or church services? Never 05/25/2022 Do you belong to any clubs o r organizations such as confucianism groups, unions, fraternal or athletic groups, or school groups? No 05/25/2022 How often do you attend meet ings of the clubs or organizations you belong to? Never 05/25/2022 Are you , , di vorced, , never , or living with a partner? 05/25/2022 AUDIT-C Answer Date Recorded Q1: How often do you have a drink containing alc ohol? Never 05/25/2022 Average Number of Drinks Not on file 023 Frequency of Binge Drinking Not on file 05/16 Overall Financial Resource Strain (CARDIA) Answe r Date Recorded How hard is it for you to pa y for the very basics like food, housing, medical care, and heating? Not very hard 05/25/2022 PHQ-2 Answer Date Recorded PHQ-2 Score 0 11/03/2023 [facility] - Occupational Stress Questionnaire Answer Date Recorded Do you feel stress - tense, restless, nervous, or anxious, or unable to sleep at night because your mind is troubled all the time - these days? Not at all 05/25/2022 Exercise Vital Sign Answer Date Recorde d On average, how many days pe r week do you engage in moderate to strenuous exercise (like a brisk walk)? 0 days 05/25/2022 On average, how many minutes do you engage in exercise at this level? 0 min 05/25/2022 Hunger Vital Sign Answer Date Recorded Within the past 12 months, y ou worried that your food would run out before you got the money to buy more. Never true 05/25/19 23 Within the past 12 months, t he food you bought just didn't last and you didn't have money to get more. Never true 05/25/2022 PRAPARE - Transportation Answer Date Re corded In the past 12 months, has l ack of transportation kept you from medical appointments or from getting medications? No 05/16 In the past 12 months, has l ack of transportation kept you from meetings, work, or from getting things needed for daily living? No 05/25/2022 Housing Stability Vital Sign Answer Davy e Recorded In the last 12 months, was t here a time when you were not able to pay the mortgage or rent on time? No 05/25/2022 In the last 12 months, how many places have you lived? 1 05/25/2022 In the last 12 months, was t here a time when you did not have a steady place to sleep or slept in a assisted (including now)? No 05/25/2022 Nutrition Answer Date Recorded On average, how many serving s of fruits and vegetables do you eat per day (serving size is equal to 1 cup or approximately the size of a tennis ball)? 2-3 05/25/2022 Dental Answer Date Recorded Dental: Regular Dentist Yes 05/15/20 Employment Answer Date Recorded Employment status Permanently disabled Education Answer Date Recorded What is the highest level of school you have completed or the highest degree you have received? 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 Gender Identity Female 10/31/2017 10:00 AM CDT Sexual Orientation Choose not to disclose 2017 10:00 AM CDT Last Filed Vital Signs Vital Sign Reading Time Taken Comments Blood Pressure 114/77 11/03/2023 2:32 PM CDT Pulse 87 11/03/2023 2:32 PM CDT Temperature 35.2 C (95.4 F) 11/03/2023 2:32 PM CDT Respiratory Rate 18 11/03/2023 2:32 PM CDT Oxygen Saturation 97% 09/25/2020 12:17 PM CDT Inhaled Oxygen Concentration - - Weight 68.1 kg (150 lb 2.1 oz) 11/03/2023 2:32 P M CDT Height 151.8 cm (4' 11.76) 11/03/2023 2:32 PM C DT Body Mass Index 29.55 11/03/2023 2:32 PM CDT Plan of Treatment Health Maintenance Due Date Last Done Comments Visit: Medicare Annual Wellness 1945 Pneumococcal vaccine (50+ years) (1 of 1 - PCV) 1994 Zoster Vaccines (1 of 2) 1994 RSV vaccine - (32-36 weeks) or 60+ years (1 - 1-dose 75+ series) 2019 COVID-19 Vaccine ( - season) 2024 01/20/2021, 12/30/2020 Influenza Vaccine (#1) 2024 Depression Screening (Annual PHQ-2) 05/16/2024 Fall Risk Screen (Annual) 05/16/2024 Visit: Annual, age 65+ (or Medicare and <65) 02/13/2025 02/14/2024 DTaP,Tdap,and Td Vaccines (2 - Td or Tdap) 11/18/2030 11/18/2020 Mammogram Discontinued 06/22/2016 (Performed elsewhere) IPV Vaccines Aged Out No longer eligi ble based on patient's age to complete this topic Medical Devices Implanted Type Area Production Crew Supervisor Device Identifier Shelf Expiration Date Model / Serial / Lot Conversions - Default Historical Implant Device Implanted:07/01 (Quantity not on file) Hip Implant Right: Hip Description:Body Location - Hip R. Device Status Text - Hip Imp. Conversions - Default Historical Implant Device Implanted:07/01 (Quantity not on file) Knee Implant Right: Knee Description:Body Location - Knee R. Device Status Text - Knee Imp. Bilateral Cataract Ocular Lens Bilatera l: Eye Insurance [facility] Care Teams Professor Of English Relationship Specialty Start Date End Date Linda Merritt MPAS, P.A.-C. [address] [place] [address] [place] [id number] PCP - General Internal Medicine 10/27/23
--- OUTSIDE RECORDS SUMMARY | 2024-08-24 15:56 | XMS_ITS | Clinical Summary ---
Author Organization [facility] Address [address] [place] [address] Care Team Providers Care Administrative Liaison Name Role Phone Unavailable Primary Care Provider Unavailabl e Source Comments You are receiving this document as you are listed as the primary care provider,follow-up provider, or the patient has been referred to you for consultation.This is in compliance with the Medicare andMedicaid EHR Incentive Program,which states Providers who transition their patient to another setting of careor provider of care or refers their patient to another provider of care shouldprovide summary care record for each transition of care or referral. [facility] Allergies Active Allergy Reactions Criticality Noted Date Comments Adhesive Rash 04/24/2020 Celecoxib Other, see comments 04/24/2020 Cant take Codeine Other, see comments 04/24/2020 Can't take Propoxyphene Other, see comments 04/24/2020 crazy Diazepam Other, see comments 04/24/2020 Hyper crazy Epinephrine Other, see comments 04/24/2020 hyper Gabapentin Other, see comments 04/24/2020 Sick in stomache, insomina, nightmares Hydrocortisone Other, see comments 04/24/2020 Cant take Opium Other, see comments 04/24/2020 Opposite affect Oxycodone Other, see comments 04/24/2020 Cant take Penicillamine Rash 04/24/2020 Tramadol Anaphylaxis High 04/24/2020 Rash and difficulty breathing Acetaminophen Other, see comments 04/24/2020 Throws up Clozapine Other, see comments High 04/24/2020 Tachy cardia Medications No known medications Social History Tobacco Use Types Packs/Day Years Used Date Smoking Tobacco: Never Comments Unknown Sex and Gender Information Value Date Recorded Sex Assigned at Not on file Legal 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 Gender Identity Not on file Sexual Orientation Not on file Last Filed Vital Signs Vital Sign Reading Time Taken Comments Blood Pressure - - Pulse - - Temperature - - Respiratory Rate - - Oxygen Saturation - - Inhaled Oxygen Concentration - - Weight 68 kg (150 lb) 04/24/2020 11:46 AM AUTOMOTIVE ENGINEERING TECHNICIAN Height 149.9 cm (4' 11) 04/24/2020 11:46 AM AUTOMOTIVE ENGINEERING TECHNICIAN Body Mass Index 30.3 04/24/2020 11:46 AM AUTOMOTIVE ENGINEERING TECHNICIAN Plan of Treatment Health Maintenance Due Date Last Done Comments Medicare Annual Wellness Visit 1945 DTaP/Tdap/Td (1 - Tdap) 1963 Pneumococcal 50+ Yrs (1 of 1 - PCV) 1994 Zoster/Shingles (1 of 2) 1994 Dexa 2009 RSV (1 - 1-dose 75+ series) 2019 COVID-19 Vaccine ( - 2023-2 5 season) 2024 Influenza (#1) 2024 HepA Aged Out No longer eligi ble based on patient's age to complete this topic HepB Aged Out No longer eligi ble based on patient's age to complete this topic Hib Aged Out No longer eligi ble based on patient's age to complete this topic IPV (Polio) Aged Out No longer eligi ble based on patient's age to complete this topic MCV4 Aged Out No longer eligi ble based on patient's age to complete this topic Meningococcal B Aged Out No longer el igible based on patient's age to complete this topic Insurance ELAINE [id number] [facility] [place]INE GARC[place] [id number] [place] [id number] [facility] MEDICARE MANAGED CARE BS
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
--- NOTE | 2024-08-24 16:01 | ED_ITS ---
HPI - General Adult General Date Seen: 08/24/24 Chief complaint: Unspecified Complaint, Adult Stated complaint: Dizziness Time Seen by Provider: 08/24/24 16:01 History of Present Illness HPI narrative: 79 yo F with a past medical history of previous ischemic stroke, giant cell arteritis (on chronic steroids? ) essential tremor, osteopenia, cervical foraminal stenosis, hyperlipidemia, hearing loss, phrenic nerve dysfunction, carpal tunnel syndrome, leg length discrepancy and chronic right thigh/sciatica pain, which causes trouble with walking. She was seen in [place] [facility] in January 2022 and diagnosed with a TIA. According to those notes she had been texting with her children and then sent some very confusing text messages. Head CT showed no acute lesions but did show chronic microangiopathic lesions. CT angiogram of her head and neck was normal. It sounds like hospitalization for TIA workup and brain MRI were recommended but declined by the patient Also diagnosed with urinary tract infection. She had been on prednisone for giant cell arteritis but was taken off that about a year or year and a half ago. She is better in her usual state of health lately. She fell asleep sitting up in a chair this afternoon she woke up a little bit before 3:00 a.m.. When she woke up she notes she was having trouble moving her left hand and arm. Her left hand was bent against her body and kind of down under the chair and she had trouble moving it. It was not really stiff or shaking like a seizure it was just not moving and she could feel it. She initially thought that she probably had suffered a stroke and decided to see if she can stand up. If she is able to stand, she thought that might be a sign that this was not a stroke. She tried to stand up but her left leg buckled under her and she fell down. She had some difficulty calling for help because she was not able to hold her phone initially with her left hand. Ultimately she was able to call on her cell phone for help. Symptoms subsequently resolved. She is not exactly sure how long they lasted but perhaps 10-20 to 30 minutes. Since she has been here in the ER her left arm and leg are back to normal. She has no ongoing acute neurologic symptoms (she still has some longstanding trouble with her right thigh which is not changed from baseline) She has no headache. No recent fever. No cough. No chest pain. No palpitations. No known history of atrial fibrillation. She took 4 baby aspirin this afternoon because of her right thigh sciatica pain but she does not normally take aspirin. No other anticoagulants. Related Data Home Medications ?Medication ?Instructions ?Recorded ?Confirmed No Known Home Medications 08/24/24 08/24/24 Allergies Allergy/AdvReac Type Severity Reaction Status Date / Time adhesive Allergy Unknown Unknown Verified 08/24/24 17:07 albuterol Allergy Unknown Tachycardia Verified 08/24/24 17:07 gabapentin Allergy Unknown Nightmare Verified 08/24/24 17:07 hydrocodone Allergy Unknown Cannot Verified 08/24/24 17:07 tolerate latex Allergy Unknown Unknown Verified 08/24/24 17:07 oxycodone Allergy Unknown Cannot Verified 08/24/24 17:07 tolerate shellfish derived Allergy Unknown Unknown Verified 08/24/24 17:07 tramadol Allergy Unknown Verified 08/24/24 17:07 belladonna alkaloids Allergy Verified 08/24/24 17:07 diazepam Allergy Verified 08/24/24 17:07 epinephrine Allergy Verified 08/24/24 17:07 midazolam (From Versed) Allergy Verified 08/24/24 17:07 Penicillins Allergy Verified 08/24/24 17:07 propoxyphene Allergy Verified 08/24/24 17:07 PFSH PFSH Medical History History of ischemic stroke ?Z86.73 - Personal history of transient ischemic attack (TIA), and cerebral infarction without residual deficits (ICD-10) History of echocardiogram ?Z92.89 - Personal history of other medical treatment (ICD-10) Temporal arteritis ?M31.6 - Other giant cell arteritis (ICD-10) History of nonmelanoma skin cancer ?Z85.828 - Personal history of other malignant neoplasm of skin (ICD-10) Health care directive on file ?Z78.9 - Other specified health status (ICD-10) Surgical History Status post laparoscopic cholecystectomy (03/02/19) ?Z90.49 - Acquired absence of other specified parts of digestive tract (ICD- 10) 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) ?Z96.651 - Presence of right artificial knee joint (ICD-10) History of right cataract extraction (07/21/15) ?Z98.41 - Cataract extraction status, right eye (ICD-10) History of operative procedure on hip ?Z98.890 - Other specified postprocedural states (ICD-10) History of hysterectomy (1971) ?Z90.710 - Acquired absence of both cervix and uterus (ICD-10) History of carpal tunnel surgery of right wrist (09/05/17) ?Z98.890 - Other specified postprocedural states (ICD-10) Family History Mother High blood pressure Paternal Grandfather Stomach cancer Social History Smoking Status: Never smoker Do you use any of these nicotine containing products: None How often do you have a drink containing alcohol: never AUDIT-C Alcohol total score: 0 Non-prescribed substance use: denies use Exam Narrative: Exam Narrative: Constitutional: Appears well-developed and well-nourished. Alert. Conversant. Non toxic. HENT: Head: Atraumatic. Nose: Nose normal. Mouth/Throat: Oral mucosa is clear and moist. no trismus. Pharynx normal. Tonsils symmetric. No tonsillar enlargement, erythema, or exudate. Eyes: Conjunctivae normal. EOM normal. Pupils equal, round, and reactive to light. No scleral icterus. Neck: Normal range of motion. Neck supple. No tracheal deviation present. No JVD Cardiovascular: Normal rate, regular rhythm. No gallop. No friction rub. No murmur heard. Symmetric radial artery pulses Pulmonary/Chest: Effort normal. No stridor. No respiratory distress. No wheezes. No rales. No rhonchi . No tenderness. Abdominal: Soft. Bowel sounds normal. No distension. No mass. No tenderness. No rebound. No guarding. Musculoskeletal: RUE: Normal range of motion. No tenderness. No deformity LUE: Normal range of motion. No tenderness. No deformity RLE: Normal range of motion. No edema. No tenderness. No deformity LLE: Normal range of motion. No edema. No tenderness. No deformity Lymph: No cervical adenopathy. Neurological: Mental status normal. Attention normal. Alert and oriented x3. GCS 15. Memory normal. Speech fluent. Cognition normal. Cranial Nerves intact II-XII except I did not formally test gag or visual acuity. EOMI. Palate elevates symmetrically and tongue protrudes in the midline. Strength: 5/5 trapezius on the right and left 5/5 deltoid on the right and left 5/5 biceps on the right and left 5/5 triceps on the right and left 5/5 aircraft structural repairer on the right and left 5/5 thumb opposition on the right and le ft 5/5 finger abduction on the right and le ft 5/5 hip flexors (L3) on the right and le ft 5/5 quadriceps (L4) on the right and lef t 5/5 tibialis anterior on the right and l eft 5/5 EHL (L5) on the right and left 5/5 gastrocnemius (S1) on the right and left 5/5 hamstring on the right and left Sensation intact to light touch in both upper extremities , C4-T1, except for she has some longstanding numbness affecting her left hand median nerve distribution. She has a history of carpal tunnel in that location. Sensation intact to light touch in Both lower extremities (L4-S1) except that she has some longstanding numbness in her right thigh and some numbness affecting both of her feet which is also longstanding.. Finger to nose and coordination normal. Gait normal. Skin: Skin is warm and dry. No rash noted. No pallor. Normal capillary refill. Psychiatric: Normal mood. Normal affect. Polite. Const: Vital Signs, click to edit/add: Vital Signs - 24 hr 08/24/24 15:56 08/24/24 16:15 08/24/24 17:22 Temperature 97.4 F L Pulse Rate 72 75 Pulse Rate [Pulse Oximeter] 69 Respiratory Rate 18 20 14 Blood Pressure 142/89 H Blood Pressure [Le ft Upper Arm] 126/78 Pulse Oximetry 99 100 100 Oxygen Delivery Me thod Room Air 08/24/24 18:01 Temperature Pulse Rate 79 Pulse Rate [Pulse Oximeter] Respiratory Rate 13 Blood Pressure 123/110 H Blood Pressure [Le ft Upper Arm] Pulse Oximetry 100 Oxygen Delivery Me thod Course Vital Signs Vital signs: Initial Vital Signs Temperature 97.4 F L 08/24/24 15:56 Temperature Source Temporal Artery Scan 08/24/24 15:56 Pulse Rate 69 08/24/24 15:56 Respiratory Rate 18 08/24/24 15:56 Blood Pressure 126/78 08/24/24 15:56 Blood Pressure Mean 94 08/24/24 15:56 Blood Pressure Position Supine 08/24/24 15:56 Pulse Oximetry 99 08/24/24 15:56 Oxygen Delivery Method Room Air 08/24/24 15:56 Vital Signs Temperature 97.4 F L 08/24/24 15:56 Pulse Rate 69 08/24/24 15:56 Respiratory Rate 18 08/24/24 15:56 Blood Pressure 126/78 08/24/24 15:56 Pulse Oximetry 99 08/24/24 15:56 Oxygen Delivery Method Room Air 08/24/24 15:56 Temperature 97.4 F L 08/24/24 15:56 Pulse Rate 79 08/24/24 18:01 Respiratory Rate 13 08/24/24 18:01 Blood Pressure 123/110 H 08/24/24 18:01 Pulse Oximetry 100 08/24/24 18:01 Oxygen Delivery Method Room Air 08/24/24 15:56 Medications Administered Medications: Discontinued Medications Generic Name Dose Route Start Last Admin Trade Name Freq PRN Reason Stop Dose Admin Aspirin 325 mg 08/24/24 19:00 08/24/24 19:25 Aspirin Ec 325 Mg Tablet PO 08/24/24 19:01 325 mg ONCE ONE Administration Clopidogrel Bisulfate 300 mg 08/24/24 19:00 08/24/24 19:25 Clopidogrel 300 Mg Tablet PO 08/24/24 19:01 300 mg ONCE ONE Administration Medical Decision Making [facility] Narrative Medical decision making narrative: 79-year-old female presents to the ER today this afternoon from home for evaluation of acute onset of neurologic symptoms this sounds suspicious for TIA. She 1st noticed symptoms shortly before 3:00 p.m. this afternoon when she woke up after taking short nap sitting up in a chair and symptoms have now completely resolved. Total duration of symptoms is little bit unclear but somewhere between 10 and 30 minutes, most likely. Workup for TIA was initiated. ABCD2 score is 4. I would recommend hospitalization for further workup including MRI, cardiac monitoring, echocardiogram. The patient politely but firmly declines offered hospitalization. Therefore we did at least the initial phases a workup here in the ER. EKG shows sinus rhythm and no arrhythmia such as AFib. CT of her brain and CT angiogram of her head neck were repeated today since it has been about 3 years since her last CTA. They show new stenoses involving branches of the right middle cerebral artery. This would anatomically correlate with the symptoms of her TIA and likely would be call put vessels. Patient will need aggressive blood pressure and cholesterol management as well as anti-platelet therapy, per Stroke Neurology. Blood pressure is fairly well controlled at 126/78. She is already on a statin for high cholesterol. It sounds like she has artery had some TIA workup done through the [facility]. Those records are not available to me. Unclear if she has had an echo to look for PFO or not. She also has a history of GCA. She is no longer on steroids for that. Sed rate is normal 10, suggesting no active vasculitis. Discussed with our Stroke Neurology colleagues from [facility], Dr. Penaloza. She recommends admission for TIA workup. She also recommends initiation of dual anti-platelet therapy. Aspirin 325 mg p.o. today, 81 mg p.o. daily thereafter. Also Plavix 300 mg p.o. low today than 75 mg p.o. daily thereafter. Patient initially was declining admission but her son did talk her into staying. We will be able to admit her for cardiac monitoring, neuro monitoring to see if she develops any recurrent stroke symptoms but unfortunately will not be able to get MRI done here at the hospital this weekend. She will be accepted to the hospitalist service by Dr. Billings. Please see hospitalist notes for further details about admission status and further workup. Lab Data Labs: Lab Results 08/24/24 08/24/24 Range/Units 16:43 16:48 WBC 7.77 (4.50-11.00) K/uL RBC 4.93 (4.00-5.20) m/uL Hgb 14.8 (12.0-16.0) gm/dL Hct 45.4 (33.0-51.0) % MCV 92 (80-100) fL MCH 30 (26-34) pg MCHC 33 (32-36) gm/dL RDW Coeff of Suly 12.9 (11.5-15.5) % Plt Count 296 (140-440) K/uL Neut % (Auto) 63.7 (42.0-72.0) % Lymph % (Auto) 24.3 (20-44) % Lea % (Auto) 8.6 (0.0-11.0) % Eos % (Auto) 2.1 (0.0-7.0) % Baso % (Auto) 0.3 (0.0-3.0) % Neut # (Auto) 4.95 (1.7-7.0) K/uL Lymph # (Auto) 1.89 (0.90-2.90) K/uL Lea # (Auto) 0.70 (0.00-0.90) K/UL Eos # (Auto) 0.16 (0.00-0.50) K/uL Baso # (Auto) 0.02 (0.00-0.30) K/uL Abs Immat Gran (auto) 0.08 (0.00-0.30) K/uL Imm/Tot Granulo (auto) 1.0 % ESR 10 (2-20) mm/hr INR 0.94 (0.91-1.10) Sodium 138 (135-149) mmol/L Potassium 4.3 (3.6-5.1) mmol/L Chloride 106 (96-114) mmol/L Carbon Dioxide 21 (20-32) mmol/L Anion Gap 11 (7-15) mEq/L BUN 23 (7-30) mg/dL Creatinine 1.0 (0.5-1.5) mg/dL Estimated Creat Clear 102.71 Estimated GFR 57 ml/min Glucose 92 (60-115) mg/dL Lactate 1.8 (0.5-1.9) mmol/L Calcium 9.6 (8.4-10.6) mg/dL Troponin I < 0.01 (0.01-0.04) ng/mL POC Creatinine 1.1 (0.6-1.3) mg/dl Imaging Data CT scan - head: Attestation: I have reviewed the pertinent imaging results. Radiologist's impression: IMPRESSION: 1. No acute hemorrhage or large territory infarct is seen. 2. Interval evolution of now chronic right frontotemporal infarct with associated encephalomalacia. CTA head and neck: Attestation: I have reviewed the pertinent imaging results. Radiologist's impression: Impression: 1. Markedly limited examination secondary to motion artifact. 2. Moderate narrowing of the proximal right M1 middle cerebral artery is seen. 3. Severe focal narrowing of the proximal superior right M2 middle cerebral artery branch. 4. Moderate multifocal narrowing of the right P2/P3 posterior cerebral artery. ECG Data Attestation: I personally reviewed and interpreted this ECG as follows: Interpretation: Normal sinus rhythm Rate: 83 [place]: 172 QRS axis: Normal axis. No pathologic Q-waves. Computer mentions anterior infarct age undetermined but I do not think this is true ST segment/T wave: No ST segment elevation or depression. Nonspecific T-wave flattening lead V3, AVF, 3, aVL, AVR QTc: 427 Discharge Plan Discharge Clinical Impression: Brain TIA, Middle cerebral artery stenosis Patient Disposition: Admitted As Observation Condition: Stable
--- NOTE | 2024-08-24 16:37 | CRLHL7_ITS ---
For Patients: As a result of the Century Cures Act, medical imaging exams and procedure reports are released immediately into your electronic medical record. You may view this report before your referring provider. If you have questions, please contact your health care provider. CLINICAL HISTORY: Left upper extremity weakness. TECHNIQUE: Standard helical CT image acquisition through the head following the administration of intravenous contrast was performed. 3D and MIP reconstructions were performed at a separate workstation and permanently archived. COMPARISON: MRA head and neck dated 10/06/2022. FINDINGS: Moderate to severe atherosclerotic stenosis of the proximal M1 segment of the right MCA and severe atherosclerotic stenosis of the distal superior trunk of the right MCA. No evidence of cerebral aneurysm. No findings to suggest an arterial-venous shunting lesion. The major dural venous sinuses and deep venous system are patent. IMPRESSION: Moderate to severe atherosclerotic stenosis of the proximal M1 segment of the right MCA and severe atherosclerotic stenosis of the distal superior trunk of the right MCA. Please note that all CT scans at this facility use dose modulation, iterative reconstruction, and/or weight-based dosing when appropriate to reduce radiation dose to as low as reasonably achievable. Dictated by Troy Mendez MD @ 08/25/2024 1:31:30 PM (Electronically Signed)
--- NOTE | 2024-08-24 16:37 | CRLHL7_ITS ---
For Patients: As a result of the Century Cures Act, medical imaging exams and procedure reports are released immediately into your electronic medical record. You may view this report before your referring provider. If you have questions, please contact your health care provider. CLINICAL HISTORY: Left upper extremity weakness. TECHNIQUE: Standard helical CT image acquisition through the neck was performed after intravenous contrast bolus enhancement. 3D and MIP reconstructions were performed at a separate workstation and permanently archived. COMPARISON: MRA head and neck dated 10/06/2022. FINDINGS: The origins of the great vessels from the aortic arch are patent. The common carotid arteries are patent. No significant luminal stenoses of the proximal ICAs by NASCET criteria. The more distal cervical segments of the ICAs are patent. The origins and cervical segments of the vertebral arteries are patent. IMPRESSION: Patent cervical arterial vasculature without hemodynamically significant luminal stenosis. Please note that all CT scans at this facility use dose modulation, iterative reconstruction, and/or weight-based dosing when appropriate to reduce radiation dose to as low as reasonably achievable. Dictated by Troy Mendez MD @ 08/25/2024 1:29:13 PM (Electronically Signed)
--- NOTE | 2024-08-24 16:37 | CRLHL7_ITS ---
For Patients: As a result of the Century Cures Act, medical imaging exams and procedure reports are released immediately into your electronic medical record. You may view this report before your referring provider. If you have questions, please contact your health care provider. INDICATION: TIA, LEFT ARM/LEFT WEAKNESS, HISTORY STROKE 2022 TECHNIQUE: CT of the head was performed without IV contrast. COMPARISON: 10/06/2022, 05/25/2022, 01/29/2022.. FINDINGS: Parenchyma: No acute hemorrhage, infarction, or mass. Mild scattered periventricular white matter hypoattenuation is nonspecific and is favored to represent chronic small vessel ischemic disease. Interval evolution of now chronic right frontotemporal infarct with associated encephalomalacia. Ventricles and extra-axial spaces: [id number] involutional changes. Mild ex vacuo dilation of the frontal horn of the right lateral ventricle. Visualized paranasal sinuses: Mild mucosal thickening of the bilateral ethmoid and maxillary sinuses. Mastoid air cells: Clear. Bones: No focal abnormality. Additional comment: Bilateral lens surgery. IMPRESSION: 1. No acute hemorrhage or large territory infarct is seen. 2. Interval evolution of now chronic right frontotemporal infarct with associated encephalomalacia. Please note that all CT scans at this facility use dose modulation, iterative reconstruction, and/or weight-based dosing when appropriate to reduce radiation dose to as low as reasonably achievable. Dictated by Myron Espino MD @ 08/24/2024 6:01:27 PM (Electronically Signed)
[2024-08-24 16:55] LABS: Creatinine, Point-of-Care* 1.1 mg/dl (0.6-1.3)
[2024-08-24 16:56] LABS: Lactate* 1.8 mmol/L (0.5-1.9)
[2024-08-24 17:02] LABS: Basophils Absolute Auto 0.02 K/uL (0.00-0.30); Basophils Percent Auto 0.3 % (0.0-3.0); Eosinophils Absolute Auto 0.16 K/uL (0.00-0.50); Eosinophils Percent Auto 2.1 % (0.0-7.0); Hematocrit 45.4 % (33.0-51.0); Hemoglobin* 14.8 gm/dL (12.0-16.0); Immature Granulocytes Abs Auto 0.08 K/uL (0.00-0.30); Lymphocytes Absolute Auto 1.89 K/uL (0.90-2.90); Lymphocytes Percent Auto 24.3 % (20-44); Mean Corpuscular HGB Conc 33 gm/dL (32-36); Mean Corpuscular Hemoglobin 30 pg (26-34); Mean Corpuscular Volume 92 fL (80-100); Monocytes Percent Auto 8.6 % (0.0-11.0); Neutrophils Absolute Auto 4.95 K/uL (1.7-7.0); Neutrophils Percent Auto 63.7 % (42.0-72.0); Platelet Count* 296 K/uL (140-440); RDW Coefficient of Variation % 12.9 % (11.5-15.5); Red Blood Count 4.93 m/uL (4.00-5.20); White Blood Count* 7.77 K/uL (4.50-11.00)
[2024-08-24 17:07] LABS: Slide Review Reflex No
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
--- OUTSIDE RECORDS SUMMARY | 2024-08-24 17:09 | XMS_ITS | Clinical Summary ---
Author Organization [facility] Address [address] [place] [address] Care Team Providers Care Statement Clerks Manager Name Role Phone Unavailable Primary Care Provider [...] for each transition of care or referral. 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 Gender Identity Not on file Sexual Orientation Not on file Last Filed Vital Signs Vital Sign Reading Time Taken Comments Blood Pressure - - Pulse - - Temperature - - Respiratory Rate - - Oxygen Saturation - - Inhaled Oxygen Concentration - - Weight 68 kg (150 lb) 04/24/2020 11:46 AM ANTIQUE DEALER Height 149.9 cm (4' 11) 04/24/2020 11:46 AM ANTIQUE DEALER Body Mass Index 30.3 04/24/2020 11:46 AM ANTIQUE DEALER Plan of Treatment Health Maintenance Due Date [...] age to complete this topic Insurance [place]LAINE [id number] [facility] [address] [address] [place] [id number] [place] [id number] [facility] [place] [address] MEDICARE MANAGED CARE BS
--- OUTSIDE RECORDS SUMMARY | 2024-08-24 17:09 | XMS_ITS | Clinical Summary ---
Author Organization [facility] Address [address] [place] [address] Care Team Providers Care Post Acute Care Nurse Name Role Phone Linda Merritt P.A.-C. Primary Care Pro vider Source Comments Patient records contain information from all sites at [facility]. For routine questions regarding patient records, call [phone] during business hours, M-F 8:00 AM - 5:00 PM Central Time. Record requests for emergency care only can be directed to [phone] at any time.[facility] Allergies Active Allergy Reactions Criticality Noted [...] often do you attend chur ch or judaism services? Never 05/25/2022 Do you belong to any clubs o r organizations such as yazdanism groups, unions, fraternal or athletic groups, or [...] Answer Date Recorded PHQ-2 Score 0 11/03/2023 [facility] Occupational Stress Questionnaire Answer Date Recorded [...] place to sleep or slept in a longterm (including now)? 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 [address] [place] [address] [place] [id number] PCP - General Internal Medicine 10/27/23
--- OUTSIDE RECORDS SUMMARY | 2024-08-24 17:09 | XMS_ITS | Clinical Summary ---
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
--- OUTSIDE RECORDS SUMMARY | 2024-08-24 17:09 | XMS_ITS | Continuity of Care Document ---
Author Organization [facility] Address [address] [place] [address] Phone Care Team Providers Care Integrity Manager Name Role Phone German Berrios MD Unavailable [...] [address], [place], [address], [place] tel:[phone] [facility] , Biopsy-prov en GCA (chief complaint)L bernarda-term prednisone Rx (chief complaint) Other giant cell arteritisLon g term (current) use of systemic steroidsAbno rmalities of gait 2 Agustina Porter. [facility] [address], [place], [address], [place]. tel:[phone] Referring Provider: German Wheat, [facility] [address], [place], [address]. tel:[phone] [facility] , [address], [place], [address], [place] tel:[phone] [facility] , No Information 2 Agustina Porter. [facility] [address], [place], [address], [place]. tel:[phone] Office/Outpa tient Visit, Est [facility] , [address], [place], [address], [place] tel:[phone] [facility] , Biopsy-prov en GCA (chief complaint)L bernarda-term prednisone Rx (chief complaint) Other giant cell arteritisLon g term (current) use of systemic steroids 2 Agustina Porter. [facility] [address], [place], [address], [place]. tel:[phone] Referring Provider: German Wheat, [facility] [address], [place], [address]. tel:[phone] Office/Outpa tient Visit, Est [facility] , [address], [place], [address], [place] tel:[phone] [facility] , Biopsy-prov en giant cell arteritis (chief complaint)L bernarda-term prednisone Rx (chief complaint) Other giant cell arteritisLon g term (current) use of systemic steroids 2 Agustina Porter. [facility] [address], [place], [address], [place]. tel:[phone] Referring Provider: German Wheat, [facility] [address], [place], [address]. tel:[phone] Office/Outpa tient Visit, Est [facility] , [address], [place], [address], [place] tel:[phone] [facility] , Biopsy-prov en Giant Cell Arteritis (chief complaint)L bernarda-term prednisone Rx (chief complaint) Other giant cell arteritisLon g term (current) use of systemic steroids 2 Agustina Porter. [facility] [address], [place], [address], [place]. tel:[phone] Referring Provider: German Wheat, [facility] [address], [place], [address]. tel:[phone] Office/Outpa tient Visit, Est [facility] , [address], [place], [address], [place] tel:[phone] [facility] , Biopsy-prov en giant Cell Arteritis (chief complaint)L bernarda-term prednisone Rx (chief complaint) Other giant cell arteritisLon g term (current) use of systemic steroids 1 Agustina Porter. [facility] [address], [place], [address], [place]. tel:[phone] Referring Provider: German Wheat, [facility] [address], [place], [address]. tel:[phone] Office/Outpa tient Visit, Est [facility] , [address], [place], [address], [place] tel:[phone] [facility] , Giant Cell Arteritis (chief complaint)L bernarda-term prednisone Rx (chief complaint) DyspneaOther giant cell arteritisLon g term (current) use of systemic steroids 1 Agustina Porter. [facility] [address], [place], [address], [place]. tel:[phone] Referring Provider: German Wheat, [facility] [address], [place], [address]. tel:[phone] Office/Outpa tient Visit, Est [facility] , [address], [place], [address], [place] tel:[phone] [facility] , Giant Cell Arteritis - biopsy-prov en (chief complaint)L bernarda-term prednisone Rx (chief complaint) Other giant cell arteritisLon g term (current) use of systemic steroidsDysp liang 1 Agustina Porter. [facility] [address], [place], [address], [place]. tel:[phone] Referring Provider: German Wheat, [facility] [address], [place], [address]. tel:[phone] Office/Outpa tient Visit, Est [facility] , [address], [place], [address], [place] tel:[phone] [facility] , Giant Cell Arteritis -biopsy-pro she (chief complaint)L bernarda-term prednisone Rx (chief complaint) Other giant cell arteritisLon g term (current) use of systemic steroids 1 Agustina Porter. [facility] [address], [place], [address], [place]. tel:[phone] Referring Provider: German Wheat, [facility] [address], [place], [address]. tel:[phone] Office/Outpa tient Visit, New [facility] , [address], [place], [address], [place] tel:[phone] [facility] , Head/scalp pain (chief complaint)E levated CRP (chief complaint) Other giant cell arteritisLon g term (current) use of systemic steroids 1 Agustina Porter. [facility] [address], [place], [address], [place]. tel:[phone] Referring Provider: German hWeat, [facility] [address], [place], [address]. tel:[phone] [facility] , [address], [place], [address], [place] tel:[phone] [facility] , No Information Agustina Porter. [facility] [address], [place], [address], [place]. tel:[phone] Referring Provider: German Wheat, [facility] [address], [place], [address]. tel:[phone] Family History Family Member Type Diagnosis Age At Onset No Information Immunizations Vaccine Date Status Comments COVID-19 Pfizer administered Source: [place] Provider COVID-19 Pfizer administered Source: [place] Provider Payers Payer name Insurance type Covered constitution party ID Ivan feliciano(s) [facility] Medicare Advantage/[employer] [id number] Social History Type Description Quantity Date Captured [...] Date Instruction Additional Infor matmargareth Pursue physical trainer apy for gait training with utilization of pool therapy. Related to Abnormalities of gait Remain off of prednisone. Relate d to Other giant cell arteritis Continue gradual pre dnisone tapering, next from 4 mg/day to 3 mg/day on 11/06, then to 2 mg/day on 12/06, then 1 mg/day on 01/06/2022. Related to Other giant cell arteritis Unfortunately, the p atient's chronic right hip/thigh/knee difficulties preclude weightbearing activity/exercise. Attend to adequate calcium and vitamin D intake. Related to size cutter (current) use of systemic steroids Continue gradual pre dnisone tapering, next from 8 mg/day to 7 mg/day on 08/14, then to 6 mg/day on 09/04, then 5 mg/day on 09/25/2021. Related to Other giant cell arteritis Unfortunately, the p atient's chronic right hip/thigh/knee difficulties preclude weightbearing activity/exercise. Attend to adequate calcium and vitamin D intake. Related to USP (current) use of systemic steroids Continue gradual pre dnisone tapering, next from 11 mg/day to 10 mg/day on 06/12, then to 9 mg/day on 07/03, then 8 mg/day on 07/24. Related to Other giant cell arteritis Consider a retrial o f alendronate.Improve efforts at increased weightbearing activity/exercise, while attending to adequate calcium and vitamin D intake. Related to USP (current) use of systemic steroids Continue gradual pre dnisone tapering, next from 12.5 mg/day to 11 mg/day on 05/10, then to 10 mg/day on 06/05. Related to Other giant cell arteritis Consider a retrial o f alendronate.Improve efforts at increased weightbearing activity/exercise, while attending to adequate calcium and vitamin D intake. Related to size cutter (current) use of systemic steroids Continue prednisone 15 mg/day, then decrease to 12.5 mg/day on 04/13. Related to Other giant cell arteritis Consider a retrial o f alendronate.Improve efforts at increased weightbearing activity/exercise, while attending to adequate calcium and vitamin D intake. Related to size cutter (current) use of systemic steroids Follow through with the planned cardiology evaluation for early April. Related to Dyspnea Continue prednisone 25 mg/day x 5 more days, then decrease to 20 mg/day. Related to Other giant cell arteritis I will continue to c onsider a retrial of alendronate.Pursue efforts at increased weightbearing activity/exercise, while attending to adequate calcium and vitamin D intake. Related to size cutter (current) use of systemic steroids Pursue prednisone ta pering from 50 mg to 40 mg/day x 10 days, then 30 mg/day. Related to Other giant cell arteritis I recommend that the patient remain off of alendronate in the near term, however anticipate a retrial at the time of her next follow-up appointment.Pursue efforts at increased weightbearing activity/exercise, while attending to adequate calcium and vitamin D intake. Related to size cutter (current) use of systemic steroids The patient and I ar e in [...] medications. The patient expresses understanding. Related to USP (current) use of systemic steroids After discussion [...] claudication and waxing and waning diplopia. assessment USP (current) use of syste ntahan steroids impression The patient had much difficulty tolerating high-dose prednisone.Also, the patient suspected the single dose of alendronate she took as the cause for some of the side effects she experienced previously, although I am much more suspicious of the prednisone. 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 Mental Status Date Cognitive Assessment Orientation - [place] ed to time, place, person, situation. Patient Care Teams Name Effective Dates (start - stop) Status Members No Information
[2024-08-24 17:18] LABS: Chloride* 106 mmol/L (96-114); Potassium* 4.3 mmol/L (3.6-5.1); Sodium* 138 mmol/L (135-149)
[2024-08-24 17:21] LABS: Blood Urea Nitrogen* 23 mg/dL (7-30); Est. Creatinine Clearance* 102.71; Estimated Glomerular Filt Rate 57 ml/min; INR 0.94 (0.91-1.10); Prothrombin Time 13.3 Seconds
[2024-08-24 17:22] LABS: Anion Gap 11 mEq/L (7-15); Calcium* 9.6 mg/dL (8.4-10.6); Carbon Dioxide* 21 mmol/L (20-32); Glucose* 92 mg/dL (60-115)
[2024-08-24 17:43] LABS: Troponin I* < 0.01 ng/mL (0.01-0.04)
[2024-08-24 17:52] LABS: Erythrocyte SedimentationRate* 10 mm/hr (2-20)
[2024-08-24] MEDS: ASPIRIN EC 325 MG TABLET PO (19:25)
[2024-08-24] MEDS: CLOPIDOGREL 300 MG TABLET PO (19:25)
--- NOTE | 2024-08-24 21:30 | P.IMHP_ITS ---
Assessment and Plan Assessment and plan (1) Brain TIA: Problem comment: - I have reviewed Dr. Dunn's note with paraphrased recommendations from stroke neurologist Dr. Daniels: Patient will need aggressive blood pressure and cholesterol management as well as anti-platelet therapy, per Stroke Neurology. She recommends admission for TIA workup. She also recommends initiation of dual anti-platelet therapy. Aspirin 325 mg p.o. today, 81 mg p.o. daily thereafter. Also Plavix 300 mg p.o. low today than 75 mg p.o. daily thereafter. - Admit for observation on telemetry - neurochecks q4h - obtain ECHO, MRI brain (if available tomorrow) - Patient not on statin, start high dose statin - ASA/Plavix load given in ER - Start daily aspirin 81/plavix 75 - PT and OT to assess due to fall and h/o hip dysplasia Status: Acute (2) Middle cerebral artery stenosis: Problem comment: - as above Status: Acute (3) History of ischemic stroke: Problem comment: Chronic infarct right frontal region. No sign neurodegenerative disease. Possible normal pressure hydrocephalus. See scanned [place] [facility] notes. Status: Chronic (4) Hyperlipidemia: Problem comment: - as above Status: Chronic Hospitalist- H&P: HPI History of Present Illness Time Seen by Provider: 21:30 Date Seen: 08/24/24 Chief complaint: Dizziness Narrative: Hossein Perez is a 79 year old female with a h/o TIAs, hyperlipidemia, hyperdynamic left ventricle, giant cell arteritis (treated with steroids, tapered off in 2021), essential tremor, cervical foraminal stenosis, and congenital hip dysplasia who presented through the ER for L arm and leg weakness. She was feeling in her usual state of health this morning. She has chronic pain in her right hip and leg from congenital hip dysplasia and multiple surgeries of that leg and wanted to go to [facility] in [facility], but did not want to have pain get in her way, so she took 4 Advil which she has not done before. She then took a nap and when she woke up around 3:03 p.m. from the nap her left arm was ?locked up? and she could not use it. She denies any numbness or tingling. She tried to stand up and immediately fell to the ground. She had tried to catch herself on the card table on the way down, but that did not work. She denies any injuries from the fall, hitting her head or loss of consciousness. She grabbed for her phone and tried to call her son, but her left arm would not work. She was eventually able to call her son anyway and he came over. Her symptoms lasted for about a total of 30 minutes and have now completely resolved. Was she has not had anything like this before, she did have a TIA about 3 years ago for which she was seen in our emergency department. She tells me that her children thought she was confused because she was sending strange text messages. She had also been seen Dr. Saini from Cardiology that your for hyperdynamic left ventricle. His notes say that she was tapering off the steroid for giant cell arteritis. Review of Systems Status of ROS: Reports: 10 or more systems reviewed and unremarkable except as noted in History and below PFSH PFSH Medical History Hyperlipidemia ?E78.5 - Hyperlipidemia, unspecified (ICD-10) Hearing loss ?H91.90 - Unspecified hearing loss, unspecified ear (ICD-10) Inequality of length of lower extremity ?M21.70 - Unequal limb length (acquired), unspecified site (ICD-10) Neural foraminal stenosis of cervical spine ?M48.02 - Spinal stenosis, cervical region (ICD-10) Osteopenia ?M85.80 - Other specified disorders of bone density and structure, unspecified site (ICD-10) Incontinence of urine ?R32 - Unspecified urinary incontinence (ICD-10) Essential tremor ?G25.0 - Essential tremor (ICD-10) Chronic fatigue ?R53.82 - Chronic fatigue, unspecified (ICD-10) Chronic lower back pain ?M54.50 - Low back pain, unspecified (ICD-10) ?G89.29 - Other chronic pain (ICD-10) History of ischemic stroke ?Z86.73 - Personal history of transient ischemic attack (TIA), and cerebral infarction without residual deficits (ICD-10) History of echocardiogram ?Z92.89 - Personal history of other medical treatment (ICD-10) Temporal arteritis ?M31.6 - Other giant cell arteritis (ICD-10) History of nonmelanoma skin cancer ?Z85.828 - Personal history of other malignant neoplasm of skin (ICD-10) Health care directive on file ?Z78.9 - Other specified health status (ICD-10) Surgical History Status post laparoscopic cholecystectomy (03/02/19) ?Z90.49 - Acquired absence of other specified parts of digestive tract (ICD- 10) 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) ?Z96.651 - Presence of right artificial knee joint (ICD-10) History of right cataract extraction (12/03/14) ?Z98.41 - Cataract extraction status, right eye (ICD-10) History of operative procedure on hip ?Z98.890 - Other specified postprocedural states (ICD-10) History of hysterectomy (1970) ?Z90.710 - Acquired absence of both cervix and uterus (ICD-10) History of carpal tunnel surgery of right wrist (09/05/17) ?Z98.890 - Other specified postprocedural states (ICD-10) Family History Mother High blood pressure Paternal Grandfather Stomach cancer Social History (Updated 08/24/24 @ 22:24 by Alix Billings MD) Narrative: DNI. Denies tobacco or EtOH. What is your current living situation?: I presently have a place to live Problems where you live: no known problems Problems where you live details: N/A In the past 12 months, utilities in danger of being shut off: no In past 12 months, lack of transportation kept you from medical appts, meetings, work, or getting things needed for daily living: no In the past 12 mos, have been you worried that your food would run out before you had money to buy more?: never true In the past 12 mos, the food you bought just didn't last and you didn't have money to buy more?: never true Highest level of school completed/degree received: Bachelor's degree Smoking Status: Never smoker Do you use any of these nicotine containing products: None Second hand tobacco smoke exposure: No How often do you have a drink containing alcohol: never AUDIT-C Alcohol total score: 0 Non-prescribed substance use: denies use How often does anyone, including family, friends and others, physically hurt you : never How often does anyone, including family, friends and others, insult or talk down to you: never How often does anyone, including family, friends and others, threaten you with harm: never How often does anyone, including family, friends and others, scream or curse at you: never service: No Meds Home Medications and Allergies Home Medications ?Medication ?Instructions ?Recorded ?Confirmed ?Type aspirin 81 mg capsule 81 mg PO DAILY 08/24/24 08/24/24 History multivitamin (Daily Multi-Vitamin 1 tab PO DAILY 08/24/24 08/24/24 History tablet) Home Medication Comments: Denies being on statin or steroids. Allergies Allergy/AdvReac Type Severity Reaction Status Date / Time adhesive Allergy Unknown Unknown Verified 08/24/24 17:07 albuterol Allergy Unknown Tachycardia Verified 08/24/24 17:07 gabapentin Allergy Unknown Nightmare Verified 08/24/24 17:07 hydrocodone Allergy Unknown Cannot Verified 08/24/24 17:07 tolerate latex Allergy Unknown Unknown Verified 08/24/24 17:07 oxycodone Allergy Unknown Cannot Verified 08/24/24 17:07 tolerate shellfish derived Allergy Unknown Unknown Verified 08/24/24 17:07 tramadol Allergy Unknown Verified 08/24/24 17:07 belladonna alkaloids Allergy Verified 08/24/24 17:07 diazepam Allergy Verified 08/24/24 17:07 epinephrine Allergy Verified 08/24/24 17:07 midazolam (From Versed) Allergy Verified 08/24/24 17:07 Penicillins Allergy Verified 08/24/24 17:07 propoxyphene Allergy Verified 08/24/24 17:07 Exam Narrative: Exam Narrative: General: No acute distress. Awake alert oriented x3. HEENT: Normocephalic atraumatic, pupils equally round and reactive to light and accommodation. Oropharynx clear. Mucous membranes are moist. No cervical lymphadenopathy, thyromegaly or carotid bruits. No JVD. Cardiovascular: Regular rate and rhythm. No murmurs, gallops, or rubs. Chest: No increased work of breathing. Clear to auscultation bilaterally. No c rackles or wheezes. Abdomen: Bowel sounds present. Soft, nondistended, nontender. No hepatosplenomegaly or masses. Extremities: Right anterior knee scar distant with history of total knee arthroplasty. No edema, no cyanosis or clubbing. Skin: No jaundice, no pallor, no rashes. Neuro: Romberg is negative. Cranial nerves 2-12 are intact. Extraocular movements are full. No nystagmus. No facial asymmetry. Tongue is midline. Strength slightly diminished in right hip, which patient tells me is consistent with her chronic disability, otherwise 5/5 in all 4 extremities. Light touch sensation is intact in face body and extremities. Coordination is intact in upper and lower extremities. Const: Vital Signs, click to edit/add: Vital Signs - 24 hr 08/24/24 15:56 08/24/24 16:15 08/24/24 17:22 Temperature 97.4 F L Pulse Rate 72 75 Pulse Rate [Left P ulse Oximeter] Pulse Rate [Pulse Oximeter] 69 Respiratory Rate 18 20 14 Blood Pressure 142/89 H Blood Pressure [Le ft Arm] Blood Pressure [Le ft Upper Arm] 126/78 Pulse Oximetry 99 100 100 Oxygen Delivery Me thod Room Air 08/24/24 18:01 08/24/24 20:51 08/24/24 21:07 Temperature 97.4 F L Pulse Rate 79 Pulse Rate [Left P ulse Oximeter] 73 Pulse Rate [Pulse Oximeter] Respiratory Rate 13 18 18 Blood Pressure 123/110 H Blood Pressure [Le ft Arm] 149/89 H Blood Pressure [Le ft Upper Arm] Pulse Oximetry 100 95 95 Oxygen Delivery Me thod Room Air Room Air Hospitalist - H&P: Result Labs Labs: Short CBC 08/24/24 Range/Units 16:48 WBC 7.77 (4.50-11.00) K/uL Hgb 14.8 (12.0-16.0) gm/dL Hct 45.4 (33.0-51.0) % Plt Count 296 (140-440) K/uL BMP 08/24/24 16:48 Sodium 138 Potassium 4.3 Chloride 106 Carbon Dioxide 21 BUN 23 Creatinine 1.0 Glucose 92 Calcium 9.6 Cardiac Enzymes 08/24/24 Range/Units 16:48 Troponin I < 0.01 (0.01-0.04) ng/mL 08/24/2024 EKG: Normal sinus rhythm, anterior infarct, age undetermined. Ordering Physician: Tye Dunn M.D. Date of Service: 08/24/24 Procedure(s): CT head/brain wo con Accession Number(s): [id number] cc: Segundo Martins M.D.; Tye Dunn M.D.~ For Patients: As a result of the Century Cures Act, medical imaging exams and procedure reports are released immediately into your electronic medical record. You may view this report before your referring provider. If you have questions, please contact your health care provider. INDICATION: TIA, LEFT ARM/LEFT WEAKNESS, HISTORY STROKE 2022 TECHNIQUE: CT of the head was performed without IV contrast. COMPARISON: 10/06/2022, 05/25/2022, 01/29/2022.. FINDINGS: Parenchyma: No acute hemorrhage, infarction, or mass. Mild scattered periventricular white matter hypoattenuation is nonspecific and is favored to represent chronic small vessel ischemic disease. Interval evolution of now chronic right frontotemporal infarct with associated encephalomalacia. Ventricles and extra-axial spaces: Nagy-li-muezbtif involutional changes. Mild ex vacuo dilation of the frontal horn of the right lateral ventricle. Visualized paranasal sinuses: Mild mucosal thickening of the bilateral ethmoid and maxillary sinuses. Mastoid air cells: Clear. Bones: No focal abnormality. Additional comment: Bilateral lens surgery. IMPRESSION: 1. No acute hemorrhage or large territory infarct is seen. 2. Interval evolution of now chronic right frontotemporal infarct with associated encephalomalacia. Please note that all CT scans at this facility use dose modulation, iterative reconstruction, and/or weight-based dosing when appropriate to reduce radiation dose to as low as reasonably achievable. Dictated by Myron Espino MD @ 08/24/2024 6:01:27 PM (Electronically Signed)
[2024-08-24] MEDS: ATORVASTATIN CALCIUM 40 MG TABLET 80 MG PO (23:28)
[2024-08-25 02:52] VITALS: BP 133/76; PULSE 84; RESP 18; TEMP 36.6; O2SAT 94
--- NOTE | 2024-08-25 04:45 | PC.NURSE ---
Shift note: Patient was brought to the floor at 2044 from the ED on a wheelchair accompanied by one of her sons. Alert and oriented on arrival but was not able to maintain her stability. She denied dizziness, headache, and weakness to one side of the body. Patient has previous history of right sided stroke which was noticeable on arrival. She appeared to be hard of hearing. Vital signs were stable. SCD and TEDs applied but patient later asked for them to be removed due to discomfort. Ambulated with A1, walker and GB to and from BR. Equal lorenzo wet trimmer and strength in both upper and lower extremities with mild weakness noted to the right side. No neurological deterioration observed. Patient is more cautious of taking medications. She tends to ask more questions and nurse provided her with every information about medications as per patient request. Patient endorsed chronic right hip pain from previous multiple hip surgeries. She rated pain at 2 or 3. Patient had adequate sleep.
[2024-08-25 07:00] VITALS: BP 121/95; PULSE 75; PULSE 92; RESP 18; TEMP 36.6; O2SAT 96
[2024-08-25] MEDS: ASPIRIN 81 MG TABLET EC PO (08:38)
[2024-08-25] MEDS: MULTIVITAMIN/MINERALS 1 TABLET 1 TAB PO (08:38)
[2024-08-25] MEDS: CLOPIDOGREL 75 MG TABLET PO (08:38)
[2024-08-25] MEDS: SODIUM CHLORIDE 0.9 % (FLUSH) 10 ML SYRINGE 5 ML IVF (08:43)
--- NOTE | 2024-08-25 09:24 | P.DS_ITS ---
DS: Providers Provider Date Seen: 08/25/24 Date of admission: 08/24/24 20:41 Primary care physician: Segundo Martins MD Admitting Clinician: Alix Billings MD Consults: OT, PT, Stroke Neurology Attending Physician on discharge: Nancy Del Cid MD Date of Discharge: 08/25/24 DS: Diagnosis Discharge Diagnosis (1) Brain TIA: Status: Acute Problem details: - admission symptom of LUE weakness - followed by stroke neurology: added statin and Plavix 75mg x21 day, continue daily 81mg ASA - back to baseline 08/25, okay to have TTE and MRI as outpatient (2) Middle cerebral artery stenosis: Status: Acute Problem details: - as above (3) History of ischemic stroke: Status: Chronic Problem details: - Chronic infarct right frontal region. No sign neurodegenerative disease, possible normal pressure hydrocephalus. See scanned [place] [facility] notes. DS: Summary Hospital Course Hospital Course: Hossein was admitted to the hospital on 08/24 for LUE weakness, concern for CVA. No acute abnormalities on ED imaging; + chronic R frontotemporal infarct/e ncephalomalacia, + narrowing of proximal R M1 and severe focal narrowing of proximal superior R M2 MCA branches. Back to baseline on hospital day 1, requesting d/c home. TTE obtained, formal cardiology read pending (possible PFO on initial tech read). No acute needs identified by PT; OT evaluation declined by Hossein. LDL 191, A1C 5.4 Seen by Stroke Neurology during stay: added 21 days of Plavix, continue 81mg of ASA indefinitely, added 80mg of Atorvastatin daily. Outpatient MRI recommended in addition to close PCP f/u. Patient appropriate for d/c home with son on 08/25/24. Status at Discharge Functional status at discharge: uses cane/walker Overall status at discharge: patient is progressing back to baseline Time Spent with Patient Time attestation: Total time spent providing and/or coordinating discharge services: Time spent: Greater than 30 minutes Exam Narrative: Exam Narrative: GEN: Alert and oriented, sitting comfortably in bedside chair HEENT: EOMIs bilaterally, no scleral icterus CV: RRR, No concerning murmurs, no carotid bruits R: LCTA bilaterally without concerning wheezing Skin: No concerning skin lesions or rashes on exposed skin Neuro: No focal deficits, no resting tremor, normal range of motion and strength of bilateral upper extremities Psych: Appropriate Const: Vital Signs, click to edit/add: Vital Signs - 24 hr 08/24/24 15:56 08/24/24 16:15 08/24/24 17:22 Temperature 97.4 F L Pulse Rate 72 75 Pulse Rate [Left P ulse Oximeter] Pulse Rate [Pulse Oximeter] 69 Respiratory Rate 18 20 14 Blood Pressure 142/89 H Blood Pressure [Le ft Arm] Blood Pressure [Le ft Upper Arm] 126/78 Blood Pressure [Ri ght Arm] Pulse Oximetry 99 100 [facility] 08/24/24 18:01 08/24/24 20:51 08/24/24 21:07 Temperature 97.4 F L Pulse Rate 79 Pulse Rate [Left P ulse Oximeter] 73 Pulse Rate [Pulse Oximeter] Respiratory Rate 13 18 18 Blood Pressure 123/110 H Blood Pressure [Le ft Arm] 149/89 H Blood Pressure [Le ft Upper Arm] Blood Pressure [Ri ght Arm] Pulse Oximetry 100 95 95 Oxygen Delivery [facility] Room Air Room Air 08/24/24 22:28 08/24/24 22:44 08/24/24 22:44 Temperature 97.7 F Pulse Rate Pulse Rate [Left P ulse Oximeter] 67 67 Pulse Rate [Pulse Oximeter] Respiratory Rate 18 18 18 Blood Pressure Blood Pressure [Le ft Arm] 154/88 H Blood Pressure [Le ft Upper Arm] Blood Pressure [Ri ght Arm] Pulse Oximetry 99 99 Oxygen Delivery [facility] Room Air Room Air 08/24/24 23:00 08/25/24 02:52 08/25/24 07:00 Temperature 97.9 F Pulse Rate 71 75 Pulse Rate [Left P ulse Oximeter] 84 Pulse Rate [Pulse Oximeter] Respiratory Rate 18 Blood Pressure Blood Pressure [Le ft Arm] 133/76 Blood Pressure [Le ft Upper Arm] Blood Pressure [Ri ght Arm] Pulse Oximetry 94 [facility] 08/25/24 07:00 08/25/24 07:00 Temperature 97.9 F Pulse Rate Pulse Rate [Left P ulse Oximeter] 92 Pulse Rate [Pulse Oximeter] Respiratory Rate 18 18 Blood Pressure Blood Pressure [Le ft Arm] Blood Pressure [Le ft Upper Arm] Blood Pressure [Ri ght Arm] 121/95 H Pulse Oximetry 96 96 Oxygen Delivery Me thod Room Air Room Air DS: Data Data Completed and Pending Completed studies during hospitalization: 1. Markedly limited examination secondary to motion artifact. 2. Moderate narrowing of the proximal right M1 middle cerebral artery is seen. 3. Severe focal narrowing of the proximal superior right M2 middle cerebral artery branch. 4. Moderate multifocal narrowing of the right P2/P3 posterior cerebral artery. Labs on day of discharge: Labs from last 24 hours 08/24/24 08/24/24 16:48 16:43 WBC 7.77 RBC 4.93 Hgb 14.8 Hct 45.4 MCV 92 MCH 30 MCHC 33 RDW Coeff of Suly 12.9 Plt Count 296 Neut % (Auto) 63.7 Lymph % (Auto) 24.3 Cotton % (Auto) 8.6 Eos % (Auto) 2.1 Baso % (Auto) 0.3 Neut # (Auto) 4.95 Lymph # (Auto) 1.89 Cotton # (Auto) 0.70 Eos # (Auto) 0.16 Baso # (Auto) 0.02 Abs Immat Gran (auto) 0.08 Imm/Tot Granulo (auto) 1.0 ESR 10 INR 0.94 Sodium 138 Potassium 4.3 Chloride 106 Carbon Dioxide 21 Anion Gap 11 BUN 23 Creatinine 1.0 Estimated Creat Clear 102.71 Estimated GFR 57 Glucose 92 Lactate 1.8 Calcium 9.6 Troponin I < 0.01 POC Creatinine 1.1 Discharge Plan Discharge Disposition: Home, Self-Care Date of Admission: 08/24/24 20:41 Attending Provider on Discharge: Nancy Del Cid Primary Care Provider: Segundo Martins Condition: Stable Anticipated Discharge Date/Time: 08/25/24 09:20 Discharge Medications: New atorvastatin 40 mg Tablet 80 mg PO HS Qty: 60 0RF clopidogrel 75 mg Tablet 75 mg PO DAILY Qty: 20 0RF Continued multivitamin [Daily Multi-Vitamin] Tablet 1 tab PO DAILY aspirin 81 mg capsule 81 mg PO DAILY Discharge Orders: Discharge Order (Routine); Ordered 08/25/24 Ordered By: Nancy Del Cid Patient Education: Atorvastatin (By mouth), Clopidogrel (By mouth), Transient Ischemic Attack (ED) Additional Instructions: Medication changes: - CONTINUE Aspirin 81mg daily - ADD Plavix 75mg for a total of 21 days (I sent this to [facility]) - ADD Atorvastatin 80mg every evening (I sent one month of this to [facility], Dr. Martins can refil it [facility]) See Dr. Martins in clinic, he can help arrange for the echocardiogram and MRI to be done as an outpatient. If you have any recurrence of symptoms or new problems, come back to the ER. Activity Level: Activity as Tolerated Discharge Diet: Regular Follow Up Appointments: Segundo Martins MD [Primary Care Provider] - 08/30/24 9:15 am () Forms: [employer] Info Instructions
[2024-08-25 09:53] LABS: Cholesterol* 277 mg/dL (90-199); HDL Cholesterol* 41 mg/dL (>=50); LDL Cholesterol Calculated 191 mg/dL (<100); Triglycerides* 224 mg/dL (40-149)
[2024-08-25 11:03] LABS: Hemoglobin A1C* 5.4 % (0-5.6)
--- NOTE | 2024-08-25 11:10 | REH.OT ---
OT orders addressed, however Pt discharged prior to session.
--- NOTE | 2024-08-25 11:14 | PC.NURSE ---
Addendum entered by Vielka Maddox RN 08/25/24 11:24: Echo arrived, Pt willing to do Echo at bedside. Original Note: Pt refusing waiting for OT and Echo, instructed pt on follow up apt with PCP on 08/30/24 and making outpatient appointment for MRI and Echo, [facility] Neurologist OK'd outpatient Echo and MRI.
== END 2024-08-25 11:50 | disposition home or self-care (01) ==
LOC: ED 19:57 → MEDSURG 20:44
PROVIDERS: Family Medicine; Admitting Provider Family Medicine; Emergency Provider Emergency Medicine; PCP Family Medicine; Visit Provider Family Medicine
DX: G45.9 Transient cerebral ischemic attack, unspecified (principal); R42 Dizziness and giddiness; I66.3 Occlusion and stenosis of cerebellar arteries; M48.02 Spinal stenosis, cervical region; E78.5 Hyperlipidemia, unspecified; R29.6 Repeated falls; M25.551 Pain in right hip; G89.29 Other chronic pain; M54.31 Sciatica, right side; M31.6 Other giant cell arteritis; G25.0 Essential tremor; R32 Unspecified urinary incontinence; M21.70 Unequal limb length (acquired), unspecified site; Z86.73 Personal history of transient ischemic attack (TIA), and cerebral infarction without residual deficits; H91.90 Unspecified hearing loss, unspecified ear; M85.80 Other specified disorders of bone density and structure, unspecified site; Z98.890 Other specified postprocedural states; Z78.9 Other specified health status; Z92.89 Personal history of other medical treatment; Z79.82 Long term (current) use of aspirin
CPT/HCPCS: 36415; 70450; 70496; 70498; 80048; 80061; 82565; 83036; 83605; 84484; 85025; 85610; 85651; 93005; 93306; 97116; 97162; 97530; 99284; 99285; A9153; A9270; G0378; Q9967

== ENCOUNTER 2024-09-11 13:59 | Outpatient (CLI) | payer MEDICARE, BC, SELFPAY ==
--- NOTE | 2024-09-11 14:30 | CRLHL7_ITS ---
For Patients: As a result of the Century Cures Act, medical imaging exams and procedure reports are released immediately into your electronic medical record. You may view this report before your referring provider. If you have questions, please contact your health care provider. Indication: Transient ischemic attack. Technique: Multiplanar, multisequence MRI of the brain was performed without intravenous contrast. Comparison: CT head 08/24/2024. MRI brain 05/25/2022. Findings: The corpus callosum, pituitary gland clivus appear intact. Mild degenerative change visualized upper cervical spine. There is no restricted diffusion. No intracranial hemorrhage. The ventricles are proportionate to the cerebral sulci. The 4th ventricle appears midline. The basal cisterns appear patent. No abnormal extra-axial fluid collection identified. Mild parenchymal volume loss. Scattered T2 FLAIR hyperintense foci within the subcortical and periventricular white matter, favored to represent chronic ischemic microvascular disease. Stable moderate-sized chronic infarct involving the right frontotemporal region. Small chronic lacunar infarct left wilcox radiata. There is no intracranial mass, abnormal mass-effect or midline shift identified. Major intracranial vascular flow voids appear grossly intact. Thinning of the ocular lenses. Impression: 1. No acute/subacute infarct. 2. Stable moderate-sized chronic right frontal temporal infarct. 3. Mild chronic ischemic microvascular disease. Dictated by Salomon Valdez MD @ 09/12/2024 11:35:41 AM (Electronically Signed)
== END 2024-09-11 14:00 | disposition home or self-care (01) ==
LOC: MRI 14:00
PROVIDERS: PCP Family Medicine; Visit Provider Family Medicine
DX: G45.9 Transient cerebral ischemic attack, unspecified (principal); I63.9 Cerebral infarction, unspecified; I67.82 Cerebral ischemia
CPT/HCPCS: 70551